=== PATIENT | male | born 1930 | race Caucasian/White ===

== ENCOUNTER 2018-03-03 10:21 | Inpatient (IN) | payer OTHER ==
[~2018-03-03] VITALS: Ht 172.7 cm; Wt 63.6 kg
--- NOTE | 2018-03-03 10:59 | ED AMS/SEIZURE/WEAK/DIZZY ---
History of Present Illness General Chief Complaint: General Adult Stated Complaint: WEAKNESS Source: patient, family, old records, EMS Exam Limitations: poor historian Vital Signs & Intake/Output Vital Signs & Intake/Output Vital Signs Date Time Temp Pulse Resp B/P B/P Pulse O2 O2 Flow FiO2 Mean Ox Delivery Rate 03/03 1453 97.4 80 20 94/60 94 Room Air 03/03 1448 Room Air 03/03 1427 97.6 80 18 99/60 96 Room Air 03/03 1222 83 18 122/71 96 Room Air 03/03 1055 95 Room Air 03/03 1030 97.5 88 20 149/74 94 Room Air Allergies Coded Allergies: No Known Allergies (03/03/18) Reconcile Medications Albuterol Sulfate (Ventolin Hfa) 90 MCG HFA.AER.AD 2 PUF INH Q4-6 PRN PRN SHORTNESS OF BREATH (Reported) Allopurinol 300 MG TABLET 1 TAB PO DAILY GOUT (Reported) Ascorbic Acid (Vitamin C) 500 MG TABLET 1 TAB PO DAILY VITAMIN SUPPORT ( Reported) Atorvastatin Calcium 10 MG TABLET 1 TAB PO QPM CHOLESTEROL (Reported) Cholecalciferol (Vitamin D3) (Vitamin D) 1,000 UNIT TABLET 1 TAB PO DAILY VITAMIN SUPPORT (Reported) Cyanocobalamin (Vitamin B-12) 1,000 MCG TABLET 1 TAB PO DAILY VITAMIN SUPPORT (Reported) Ferrous Sulfate 325 MG (65 MG IRON) TABLET 1 TAB PO QPM VITAMIN SUPPORT ( Reported) Fluticasone/Salmeterol (Advair 500-50 Diskus) 500 MCG-50 MCG/DOSE BLST.W.DEV 1 PUF INH BID BREATHING PROBLEMS (Reported) Furosemide 20 MG TABLET 1 TAB PO DAILY WATER RETENTION (Reported) Metoprolol Succinate 50 MG TAB.ER.24H 1 TAB PO QPM HEART (Reported) Multivit-Min/FA/Lycopen/Lutein (Centrum Silver Tablet) 0.4 MG-300 MCG-250 MCG TABLET 1 TAB PO DAILY VITAMIN SUPPORT (Reported) Terazosin HCl 5 MG CAPSULE 1 CAP PO QPM SLEEP (Reported) Umeclidinium [place] (Incruse Ellipta) 62.5 MCG/ACTUATION BLST.W.DEV 1 INH PO DAILY BREATHING PROBLEMS (Reported) Vitamin E (Dl,Tocopheryl Acet) (Vitamin E) 400 UNIT CAPSULE 1 CAP PO DAILY VITAMIN SUPPORT (Reported) Triage Note: 87 YO MALE BIBA FROM HOME. PT ARRIVES A&O X3. PTS HERE WITH PT, PER , PT HAS BEEN SLEEPING FOR THE PAST COUPLE OF DAYS. STATES THEY HAVE AIDES THAT COME A COUPLE TIMES A WEEK AND HAD PYSICAL THERAPY AND OCCUPATIONAL THERAPY BUT "THEY STOPPED COMING BECUASE HE WASNT PARTICIPATING" STATES "I JUST RECIEVED A LETTER TALKING ABOUT HOSPICE" PT DENIES ANY PAIN. PER , "HE DOESNT EAT OR DRINK ALOT" MD AT BEDSIDE ON ARRIVAL. Triage Nurses Notes Reviewed? yes Onset: 5 days RADIOLOGIC TECH Duration: day(s):, constant, continues in ED, getting worse Timing: recent history Injury Environment: home Severity: moderate, severe Modifying Factors: Improves With: rest. Worsens With: movement. HPI: 5 days prior to admission spouse reports patient is had increased fatigue anorexia and sleeping. She reports he has a chronic cough. There's been no fever chills nausea vomiting diarrhea abdominal pain chest pain shortness of breath headache dysuria rash bleeding. Past History Travel History Traveled to [place] past 21 day No Medical History Any Pertinent Medical History? 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 No Review of Systems Review of Systems Constitutional: Reports: see HPI, weakness. EENTM: Reports: no symptoms. Respiratory: Reports: see HPI, cough. Cardiovascular: Reports: no symptoms. GI: Reports: no symptoms. Genitourinary: Reports: no symptoms. Musculoskeletal: Reports: no symptoms. Skin: Reports: no symptoms. Neurological/Psychological: Reports: no symptoms. Hematologic/Endocrine: Reports: no symptoms. Immunologic/Allergic: Reports: no symptoms. All Other Systems: Reviewed and Negative Physical Exam Physical Exam General Appearance: well developed/nourished, alert, awake, anxious, mild distress, thin Head: atraumatic, normal appearance Eyes: Bilateral: normal appearance, PERRL, EOMI. Ears, Nose, Throat: normal pharynx, dry mucous membranes Neck: normal inspection, supple, full range of motion, no midline tenderness Respiratory: chest non-tender, no respiratory distress, quiet respiration, decreased breath sounds, rales Cardiovascular: normal peripheral pulses, irregularly irregular, norml femoral pulses equa Peripheral Pulses: 4+ carotid (R), 4+ carotid (L) Gastrointestinal: normal bowel sounds, soft, non-tender, no organomegaly Back: normal inspection, normal range of motion, no vertebral tenderness Extremities: normal range of motion, no ligament instability Neurologic/Psych: no motor/sensory deficits, awake, alert, oriented x 3, normal mood/affect, 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 Skin: intact, normal color, warm/dry Lymphatic: no anterior cervical yesenia Core Measures ACS in differential dx? No CVA/TIA Diagnosis No Sepsis Present: No Sepsis Focused Exam Completed? No Progress Differential Diagnosis: dehydration, electrolyte imbalance, hypoglycemia, pneumonia, A. fib Plan of Care: Orders Procedure Date/time Status CORTISOL AM 03/04 0600 Active CBC WITHOUT DIFFERENTIAL 03/04 0600 Active BASIC ELECTROLYTES PLUS BUN&CR 03/04 0600 Active Regular Diet 03/03 L Complete Heart Healthy Diet 03/03 D Active Code Status 03/03 1613 Active Weight 03/03 1447 Active Vital Signs 03/03 1447 Active Teach/Educate 03/03 1447 Active Pain Treatment and Response 03/03 1447 Active Nutritional Intake, Monitor 03/03 1447 Active Isolation 03/03 1447 Active Intake & Output 03/03 1447 Active Patient Care Conference 03/03 1447 Active Activity/Ambulation 03/03 1447 Active SWALLOW EVALUATION 03/03 1418 Active TRC EVALUATION (GEN) 03/03 1418 Active PT Evaluate & Treat 03/03 1418 Active Pathway - chart 03/03 1418 Active House Staff 03/03 1418 Active Patient Data 03/03 1418 Active Code Status 03/03 1418 Complete Patient Data 03/03 1308 Active OXYGEN SETUP (GEN) 03/03 1222 Active Saline Lock 03/03 1222 Active Admit to inpatient 03/03 1222 Active Vital Signs 03/03 1222 Active Activity/Ambulation 03/03 1222 Active Code Status 03/03 1222 Complete BLOOD CULTURE 03/03 1210 Active ARTERIAL BLOOD GAS (GEN) 03/03 1039 Complete URINALYSIS 03/03 1039 Complete THYROID STIMULATING HORMONE 03/03 1039 Complete TROPONIN LEVEL 03/03 1039 Complete MAGNESIUM 03/03 1039 Complete CORTISOL AM 03/03 1039 Complete COMPREHENSIVE METABOLIC PANEL 03/03 1039 Complete CBC WITHOUT DIFFERENTIAL 03/03 1039 Complete B-TYPE NATRIURETIC PEP (BNP) 03/03 1039 Complete Intake & Output 03/03 1037 Active EKG 03/03 1029 Active Lab Add-on Test 03/03 UNK Active VTE Mechanical Prophylaxis 03/03 UNK Active Vital Signs 03/03 UNK Complete Telemetry/Diet Counselor 03/03 UNK Active Intake & Output 03/03 UNK Complete Hemoccult 03/03 UNK Active Current Medications Sig/Jamilah Start time Last Medication Dose Stop Time Status Admin Polyethylene Glycol 17 GM AT BEDTIME 03/03 2200 AC (Miralax) Acetaminophen 650 MG Q6P PRN 03/03 1415 AC (Tylenol) Sodium Chloride 1,000 ML ONCE ONE 03/03 1415 AC 03/03 (Normal Saline 0.9%) 03/04 1014 1524 Laboratory Tests 03/03/18 1220: Urine Color YEL, Urine Clarity HAZY H, Urine pH 6.0, Ur Specific [place] 1.015, Urine Protein NEG, Urine Ketones TRACE H, Urine Nitrite NEG, Urine Bilirubin NEG, Urine Urobilinogen 0.2, Ur Leukocyte Esterase NEG, Ur Microscopic SEDIMENT EXAMINED, Urine RBC >75 H, Urine WBC RARE, Ur Epithelial Cells FEW, Hyaline Casts 1-3 H, Urine Hemoglobin MOD H, Urine Glucose NEG 03/03/18 1120: pH 7.45, pCO2 39, pO2 71 L, HCO3 26, ABG O2 Sat (Measured) 93.0 L, Carboxyhemoglobin 0.7 L, O2 Concentration % RA, Phlebotomy Draw Site LEFT RADIAL 03/03/18 1040: Magnesium Cancelled 03/03/18 1039: Anion Gap 10, Estimated GFR 48 L, BUN/Creatinine Ratio 28.6 H, Glucose 86, Calcium 9.2, Magnesium 2.3, Total Bilirubin 1.5 H, AST 16 L, ALT 25, Alkaline Phosphatase 102, Troponin I 0.03, Shl-S-Xpxhpwvxctd Pept 3670 H, Total Protein 6.6, Albumin 3.2 L, Globulin 3.4, Albumin/Globulin Ratio 0.9 L, TSH 4.170, Cortisol AM Sample 20.7 03/03/18 1038: CBC w Diff NO MAN DIFF REQ, RBC 3.78 L, MCV 97.0 H, MCH 32.1 H, MCHC 33.0, RDW 17.0 H, MPV 9.7, Gran % 65.7, Lymphocytes % 25.7, Monocytes % 8.0, Eosinophils % 0.1, Basophils % 0.5, Absolute Granulocytes 3.8, Absolute Lymphocytes 1.5, Absolute Monocytes 0.5, Absolute Eosinophils 0, Absolute Basophils 0 Microbiology 03/03 1230 BLOOD: Blood Culture - RECD 03/03 1220 BLOOD: Blood Culture - RECD Diagnostic Imaging: Viewed by Me: Radiology Read. Discussed w/RAD: Radiology Read. CXR Impression: Mild interstitial edema. Small right pleural effusion with associated right basilar infiltrate or atelectasis. Initial ED EKG: AFIB, no ST T wave changes Rhythm Strip: atrial fibrillation Departure Departure Time of Disposition: 1219 Disposition: STILL A PATIENT Condition: Stable Clinical Impression Primary Impression: New onset atrial fibrillation Secondary Impressions: Acute renal insufficiency, CHF (congestive heart failure) , Hematuria, Pleural effusion, Pneumonia Referrals: Jose MURGUIA,Cholo Bonilla (PCP/Family) Departure Forms: Customer Survey General Discharge Information Admission Note Spoke With: Harleen MURGUIA,Bennett Documentation of Exam: Documentation of any treatments & extenuating circumstances including Concerns Regarding Discharge (functional status, medication knowledge or non-compliance, living conditions, etc.) that warrant an admission rather than observation: IV antibiotics follow cultures serial lab exam medication adjustment physical therapy continuing care discharge planning
[2018-03-03 11:00] LABS: ABSOLUTE BASOPHIL COUNT 0 /CUMM (0.0-0.2); ABSOLUTE EOSINOPHIL COUNT 0 /CUMM (0.0-0.7); ABSOLUTE GRANULOCYTE CT 3.8 /CUMM (1.4-6.5); ABSOLUTE LYMPH COUNT 1.5 /CUMM (1.2-3.4); ABSOLUTE MONOCYTE COUNT 0.5 /CUMM (0.10-0.60); BASOPHIL % 0.5 % (0.0-2.0); EOSINOPHIL % 0.1 % (0-5); GRANULOCYTE % 65.7 % (42.2-75.2); HEMATOCRIT 36.7 % (42-52); MEAN CORPUSCULAR HGB 32.1 PG (27.0-31.0); MEAN PLATELET VOLUME 9.7 FL (7.4-10.4); PLATELET COUNT 118 /CUMM (130-400); RED BLOOD CELL CT 3.78 /CUMM (4.70-6.10); WHITE BLOOD CELL COUNT 5.7 /CUMM (4.8-10.8)
[2018-03-03] MEDS ORDERED: FUROSEMIDE20 M1 PO (11:03)
[2018-03-03] MEDS ORDERED: ALLOPURINOL300 M1 PO (11:03)
[2018-03-03] MEDS ORDERED: CENTRUM SILVER1 EAC3 PO (11:04)
[2018-03-03] MEDS ORDERED: VITAMIN E400 UNI1 PO (11:04)
[2018-03-03] MEDS ORDERED: VITAMIN C500 M8 PO (11:04)
[2018-03-03] MEDS ORDERED: VITAMIN B-121000 MC3 PO (11:05)
[2018-03-03] MEDS ORDERED: VITAMIN D1000 UNIT PO (11:05)
[2018-03-03] MEDS ORDERED: ATORVASTATIN CA10 M1 PO (11:05)
[2018-03-03] MEDS ORDERED: METOPROLOL SUCC50 M2 PO (11:05)
[2018-03-03] MEDS ORDERED: ADVAIR 500-501 EACH INH (11:06)
[2018-03-03] MEDS ORDERED: FERROUS SULFAT325 M3 PO (11:06)
[2018-03-03] MEDS ORDERED: TERAZOSIN HCL5 M1 PO (11:06)
[2018-03-03] MEDS ORDERED: VENTOLIN HFA18 GM INH (11:07)
[2018-03-03] MEDS ORDERED: INCRUSE ELLI62.5 MCG PO (11:07)
--- NOTE | 2018-03-03 11:57 | RADIOLOGY REPORT ---
EXAMINATION: XR PORTABLE CHEST CLINICAL INFORMATION: Pneumonia. Weakness. COMPARISON: None TECHNIQUE: Portable frontal view of the chest was obtained. FINDINGS: Mild cardiomegaly. Small right pleural effusion with associated right basilar infiltrate or atelectasis. Mild prominence of the pulmonary markings bilateral lungs may represent mild interstitial edema. Subsegmental atelectasis right midlung. Bony thorax is intact. IMPRESSION: Mild interstitial edema. Small right pleural effusion with associated right basilar infiltrate or atelectasis.
--- NOTE | 2018-03-03 13:17 | History & Physical ---
[place] 03/03/18 1316: General Information and HPI MD Statement: I have seen and personally examined ARBEN MAYO and documented this H&P. The patient is a 87 year old M who presented with a patient stated chief complaint of generalized weakness, decreased appetite for last 3 weeks and cough with sputum for last 1 week []. 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 Patient's was on the bedside to help him to answer the questions. His reported that he was in his usual state of health 3 weeks back when she started to notice that his more lethargic and having decreased appetite. She reported that patient is getting his physiotherapy and occupational therapy at home but last 3 weeks he is not interested to do it. The patient's therapist noticed that patient has difficulty getting out of the bed and he is more lethargic. According to he is sleeping all the time and not even taking his medication except the steroid inhaler he is using all the time. She also reported that patient having cough this year requiring sputum for 1 week. According to her this cough is different from his baseline cough that he has always due to his COPD. Denied any chest pain, shortness of breath at rest, palpitation, nausea, vomiting, diarrhea, constipation, lightheadedness, abdominal pain, trauma, headache, chills, fever, sick contact and dysuria. Patient is seeing his urologist after every 6 months for his bladder tumor. Last time he saw his urologist several months back when he did cystoscopy and he told the patient to come and see him in 6 months. Patient is also seeing his primary care physician after every 3 months. Patient has a history of anemia for which she was getting iron infusions at infusion center and now he is taking iron pills. Patient also seeing his marketing representative Dr. Lawson at [facility]. Last time patient was admitted in hospital at [facility] in 2016 the COPD and CHF exacerbation and also had hematuria. ED course: Vitals: Temperature 97.5, pulse 88, respiratory rate 20, blood pressure 149/74, oxygen saturation 94 room air Labs: WBC count 5.7, hemoglobin 12.1, hematocrit 36.7, platelet count 118, sodium 145, potassium 4.1, BUN 40, creatinine 1.4, BUNs/creatinine ratio 28.6, glucose 86, calcium 9.2, magnesium 2.3, total bilirubin 1.5, AST 16, hematocrit 25, alkaline phosphatase 102, troponin 0.03, proBNP 3670, albumin 3.2, globulin 3.4, albumin/globulin ratio 0.9 Blood cultures were obtained in ED. patient was given 1 dose of azithromycin and ceftriaxone. Allergies/Medications Allergies: Coded Allergies: No Known Allergies (03/03/18) Home Med list Albuterol Sulfate (Ventolin Hfa) 90 MCG HFA.AER.AD 2 PUF INH Q4-6 PRN PRN SHORTNESS OF BREATH (Reported) Allopurinol 300 MG TABLET 1 TAB PO DAILY GOUT (Reported) Ascorbic Acid (Vitamin C) 500 MG TABLET 1 TAB PO DAILY VITAMIN SUPPORT ( Reported) Atorvastatin Calcium 10 MG TABLET 1 TAB PO QPM CHOLESTEROL (Reported) Cholecalciferol (Vitamin D3) (Vitamin D) 1,000 UNIT TABLET 1 TAB PO DAILY VITAMIN SUPPORT (Reported) Cyanocobalamin (Vitamin B-12) 1,000 MCG TABLET 1 TAB PO DAILY VITAMIN SUPPORT (Reported) Ferrous Sulfate 325 MG (65 MG IRON) TABLET 1 TAB PO QPM VITAMIN SUPPORT ( Reported) Fluticasone/Salmeterol (Advair 500-50 Diskus) 500 MCG-50 MCG/DOSE BLST.W.DEV 1 PUF INH BID BREATHING PROBLEMS (Reported) Furosemide 20 MG TABLET 1 TAB PO DAILY WATER RETENTION (Reported) Metoprolol Succinate 50 MG TAB.ER.24H 1 TAB PO QPM HEART (Reported) Multivit-Min/FA/Lycopen/Lutein (Centrum Silver Tablet) 0.4 MG-300 MCG-250 MCG TABLET 1 TAB PO DAILY VITAMIN SUPPORT (Reported) Terazosin HCl 5 MG CAPSULE 1 CAP PO QPM SLEEP (Reported) Umeclidinium [place] (Incruse Ellipta) 62.5 MCG/ACTUATION BLST.W.DEV 1 INH PO DAILY BREATHING PROBLEMS (Reported) Vitamin E (Dl,Tocopheryl Acet) (Vitamin E) 400 UNIT CAPSULE 1 CAP PO DAILY VITAMIN SUPPORT (Reported) Past History Travel History Traveled to [place] past 21 day No Medical History Neurological: NONE EENT: NONE Cardiovascular: CHF, hypertension, hyperlipidemia Respiratory: COPD Gastrointestinal: NONE Hepatic: NONE Renal: NONE Musculoskeletal: gout Psychiatric: NONE Endocrine: NONE Blood Disorders: NONE Cancer(s): 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 EENTM: Reports: no symptoms. Cardiovascular: Denies: chest pain, orthopena, palpitations. Respiratory: Reports: cough, sputum production. GI: Reports: no symptoms. Genitourinary: Reports: no symptoms. Musculoskeletal: Reports: no symptoms. Skin: Reports: no symptoms. Neurological/Psychological: Reports: no symptoms. Hematologic/Endocrine: Reports: no symptoms. Exam & Diagnostic Data Last 24 Hrs of Vital Signs/I&O Vital Signs Date Time Temp Pulse Resp B/P B/P Pulse O2 O2 Flow FiO2 Mean Ox Delivery Rate 03/03 1222 83 18 122/71 96 Room Air 03/03 1055 95 Room Air 03/03 1030 97.5 88 20 149/74 94 Room Air Intake & Output 03/03 1600 03/03 0800 03/03 0000 Intake Total 0 Output Total 120 Balance -120 Intake, Oral 0 Output, Urine 120 Patient 140 lb Weight Weight Reported by Patient Measurement Method Physical Exam General Appearance Alert, Oriented X3, Cooperative Skin No Rashes Skin Temp/Moisture Exam: Warm/Dry Sepsis Skin Exam (color): Normal for Ethnicity HEENT Atraumatic, PERRLA, EOMI Neck Supple Cardiovascular Normal S1, Normal S2 Lungs B/L decreased breath sounds Abdomen Soft, No Tenderness, Left side inguinal hernia Neurological Normal Speech, Normal Tone, left upper extrimity 4/5 compare to left, lower extrimities 5/5 Extremities No Edema Last 24 Hrs of Labs/Tanner: Laboratory Tests 03/03/18 1220: Urine Color YEL, Urine Clarity HAZY H, Urine pH 6.0, Ur Specific [place] 1.015, Urine Protein NEG, Urine Ketones TRACE H, Urine Nitrite NEG, Urine Bilirubin NEG, Urine Urobilinogen 0.2, Ur Leukocyte Esterase NEG, Ur Microscopic SEDIMENT EXAMINED, Urine RBC >75 H, Urine WBC RARE, Ur Epithelial Cells FEW, Hyaline Casts 1-3 H, Urine Hemoglobin MOD H, Urine Glucose NEG 03/03/18 1120: pH 7.45, pCO2 39, pO2 71 L, HCO3 26, ABG O2 Sat (Measured) 93.0 L, Carboxyhemoglobin 0.7 L, O2 Concentration % RA, Phlebotomy Draw Site LEFT RADIAL 03/03/18 1040: Magnesium Cancelled 03/03/18 1039: Anion Gap 10, Estimated GFR 48 L, BUN/Creatinine Ratio 28.6 H, Glucose 86, Calcium 9.2, Magnesium 2.3, Total Bilirubin 1.5 H, AST 16 L, ALT 25, Alkaline Phosphatase 102, Troponin I 0.03, Lul-L-Shspivchcry Pept 3670 H, Total Protein 6.6, Albumin 3.2 L, Globulin 3.4, Albumin/Globulin Ratio 0.9 L 03/03/18 1038: CBC w Diff NO MAN DIFF REQ, RBC 3.78 L, MCV 97.0 H, MCH 32.1 H, MCHC 33.0, RDW 17.0 H, MPV 9.7, Gran % 65.7, Lymphocytes % 25.7, Monocytes % 8.0, Eosinophils % 0.1, Basophils % 0.5, Absolute Granulocytes 3.8, Absolute Lymphocytes 1.5, Absolute Monocytes 0.5, Absolute Eosinophils 0, Absolute Basophils 0 Microbiology 03/03 1230 BLOOD: Blood Culture - RECD 03/03 1220 BLOOD: Blood Culture - RECD Assessment/Plan Assessment: 87 YO M ex-smoker with PMH of HTN, HLD, CHF (diastolic and systolic), 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 We'll admit the patient on telemetry floor to rule out any ischemic cardiac injury. Generalized weakness: -Community-acquired pneumonia is less likely considering patient's normal WBC count and he is afebrile. Athough patient received one dose of ceftriaxone and azithromycin. -We will follow blood cultures -Probably due to dehydration or continuous use of steroid inhaler -We will encourage patient to take orally -Patient blood pressure is dropping and will give him normal saline bolus but if it's keep dropping we will consider adrenal insufficiency due to steroid inhaler use. We will consider giving him hydrocortisone. -Gentle IV hydration -PT evaluation Acute kidney injury: -Probably due to dehydration due to low intake of oral fluids and use of Lasix. -Gentle IV hydration -Monitor input and output -Avoid nephrotoxic medications New onset A. fib: -Serial EKGs and drops to rule out any ischemic cardiac injury -Cardiac consult in a.m. -Echocardiogram -Heart rate is under control and already on metoprolol. -CHADS-VASC score is 5. We will follow cardiology recommendations for anticoagulation. -Although patient has history of bladder tumor and he has microscopic hematuria. We will monitor for any gross hematuria. Microscopic hematuria: -Probably from bladder tumor -We will monitor for any gross hematuria or clot formation. -We will monitor H&H. History of hypertension and hyperlipidemia: -Continue home medications History of diastolic and systolic heart failure: -Continue home medications -We will get his records from primary care and [facility]. History of COPD: -TRC nebulization as needed -Continue his home medications History of gout: -Continue allopurinol DVT prophylaxis: Mechanical only due to thrombocytopenia CODE STATUS: DNR/DNI As Ranked By This Provider Problem List: 1. Hematuria 2. Acute renal insufficiency 3. New onset atrial fibrillation Core Measures/Misc (08/18) Acute Coronary Syndrome ACS Diagnosis: No Congestive Heart Failure Congestive Heart Failure Diagnosis No Cerebrovascular Accident CVA/TIA Diagnosis: No VTE (View Protocol) VTE Risk Factors Age>40 No Mechanical VTE Prophylaxis d/t N/A MechProphylax Ordered No VTE Pharm Prophylaxis d/t Platelets below ref range Sepsis (View protocol) Sepsis Present: No Guille MURGUIA,[facility] 03/03/18 1776: Resident Review Statement Resident Statement: examined this patient, discussed with internet marketing intern, agreed with internet marketing intern, discussed with family, discussed with nursing Other Findings: Patient is 87 year old gentleman with past medical history significant for HTN, HLD, CHF (diastolic and systolic), 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 Patient was brought in by family because of excessive sleepiness and fatigability for the last 3 weeks. The primary drapery counselor and his reported that patient could not anymore participate with the visiting nurse for PT and OT because of his sleepiness. She also reported history of productive cough yellow to clear phlegm since last week, denied fever or chills. Patient denies shortness of breath however family reported that over the course of 1 month he has been using Advair every 4 hours in state of the pro air. Patient denied any chest pain, palpitation, blurry vision, headaches. Decrease appetite with weight loss of 10 pounds over 1 month. Problem list #Elevated proBNP #Small right pleural effusion #Atelectasis #New onset atrial fibrillation #Hypertension with possible steroid dependence given history of adverse administration every 4 hours Plan Admit to telemetry floor Vitals every shift Ins and outs Patient was initially treated as a community-acquired pneumonia with ceftriaxone and azithromycin however no leukocytosis and no definitive chest x-ray findings for infection. Will hold off antibiotics Watch for fever Repeat CBCs Repeat BMP and replete electrolytes adequately Patient is hypotensive 94/60, will hold off diuretics and metoprolol succinate, patient will be given 500 normal saline bolus on 2 hours and went back of normal saline running at 50 cc/h Avoid volume overload Consider repeat chest x-ray if patient started to have shortness of breath, at present he is saturating well on room air Initiate aspirin Cardiac consultation for new onset A. fib, recommendation for anticoagulation DVT prophylaxis Alps only for low platelet Code DNR/DNI Diet heart healthy Linnea Antoine 03/03/186: Attending MD Review Statement Attending Statement Attending MD Statement: examined this patient, discuss w/resident/PA/LOCKSTITCH SLEEVE MAKER, agreed w/resident/PA/LOCKSTITCH SLEEVE MAKER, discussed with family, reviewed EMR data (avail), discussed with nursing, discussed with case mgmt Attending Assessment/Plan: Agree with the above assessment and plan. Hypotension- likley secondary to dehydration and diuretics ., will hydrate and if bp does not improve will consider adrenal insufficiency. Cortisol level is ok thought not exactly am level. YOLANDA with high bun/cr ration, will hydrate and recheck in am. Cough- will check flu swab, will dc abx . got one dose of abx in er for PNA. will f/u clinically, pt has normal wbc and afberile. New onset afib- will f/u on telemetry and will do serial trops. rates controlled. will get cardio consult alistair. Thormbocytopenia- recheck in am . d/w pt and pts family at bedside the care plan.
[2018-03-03 14:53] VITALS: BP 94/60
[2018-03-03 18:23] VITALS: BP 110/60
--- NOTE | 2018-03-03 21:36 | Admission Certification ---
Admission Certification Certification Statement - As attending physician, I certify that at the time of - admission, based on clinical presentation, severity of - symptoms, need for further diagnostic testing and - therapeutic interventions, and risk of adverse outcomes - without in-hospital treatment, in my clinical assessment, - this patient requires an acute hospital stay for a minimum - of two nights or longer. I have also considered psychsocial - factors such as support system, advanced age, financial - issues, cognitive issues, and failed out-patient treatments, - past re-admission history, safety of patient, and lack of - compliance as applicable. Specific rationale supporting this admission is: Hypotension. new onset afib
[2018-03-03 22:16] VITALS: BP 124/68
--- NOTE | 2018-03-03 22:41 | Cons- Cardiology ---
General Information and HPI Consulting Request Date of Consult: 03/03/18 Requested By: Rigoberto Clark MD History of Present Illness: Mr. Perez is an 87 year old male with history of hypertension, dyslipidemia, CHF and CVA. The patient was brought to the ER for evaluation of lethargy and anorexia. According to his he has not arisen from bed for two days except to urinate a couple times. On Saturday the patient also had leg swelling although it appears to be mostly resolved at this time. The patient was also short of breath a couple days ago but now is comfortable with his breathing. He otherwise denies chest pain, lightheadedness or palpitations. In the ER the patient was found to be in atrial fibrillation although the patient has no awareness of this dysrhythmia. The patient also has a productive cough. Mr. Perez also has bladder cancer and anemia. Allergies/Medications Allergies: Coded Allergies: No Known Allergies (03/03/18) Home Med List: Albuterol Sulfate (Ventolin Hfa) 90 MCG HFA.AER.AD 2 PUF INH Q4-6 PRN PRN SHORTNESS OF BREATH (Reported) Allopurinol 300 MG TABLET 1 TAB PO DAILY GOUT (Reported) Ascorbic Acid (Vitamin C) 500 MG TABLET 1 TAB PO DAILY VITAMIN SUPPORT ( Reported) Atorvastatin Calcium 10 MG TABLET 1 TAB PO QPM CHOLESTEROL (Reported) Cholecalciferol (Vitamin D3) (Vitamin D) 1,000 UNIT TABLET 1 TAB PO DAILY VITAMIN SUPPORT (Reported) Cyanocobalamin (Vitamin B-12) 1,000 MCG TABLET 1 TAB PO DAILY VITAMIN SUPPORT (Reported) Ferrous Sulfate 325 MG (65 MG IRON) TABLET 1 TAB PO QPM VITAMIN SUPPORT ( Reported) Fluticasone/Salmeterol (Advair 500-50 Diskus) 500 MCG-50 MCG/DOSE BLST.W.DEV 1 PUF INH BID BREATHING PROBLEMS (Reported) Furosemide 20 MG TABLET 1 TAB PO DAILY WATER RETENTION (Reported) Metoprolol Succinate 50 MG TAB.ER.24H 1 TAB PO QPM HEART (Reported) Multivit-Min/FA/Lycopen/Lutein (Centrum Silver Tablet) 0.4 MG-300 MCG-250 MCG TABLET 1 TAB PO DAILY VITAMIN SUPPORT (Reported) Terazosin HCl 5 MG CAPSULE 1 CAP PO QPM SLEEP (Reported) Umeclidinium Lititz (Incruse Ellipta) 62.5 MCG/ACTUATION BLST.W.DEV 1 INH PO DAILY BREATHING PROBLEMS (Reported) Vitamin E (Dl,Tocopheryl Acet) (Vitamin E) 400 UNIT CAPSULE 1 CAP PO DAILY VITAMIN SUPPORT (Reported) Review of Systems Review of Systems: Bladder cancer and anemia. 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 Home Smoking Status: Former Smoker Exam & Diagnostic Data Vital Signs and I&O Vital Signs Date Time Temp Pulse Resp B/P B/P Pulse O2 O2 Flow FiO2 Mean Ox Delivery Rate 03/036 97.7 83 18 124/68 94 03/03 1823 82 110/60 03/03 1453 97.4 80 20 94/60 94 Room Air 03/03 1448 Room Air 03/03 1427 97.6 80 18 99/60 96 Room Air 03/03 1222 83 18 122/71 96 Room Air 03/03 1055 95 Room Air 03/03 1030 97.5 88 20 149/74 94 Room Air Intake & Output 03/03 1600 03/03 0800 03/03 0000 03/02 1600 03/02 0800 03/02 0000 Intake Total 0 Output Total 120 Balance -120 Intake, Oral 0 Output, Urine 120 Patient 137 lb Weight Weight Bed scale Measurement Method Physical Exam: General: WD/WN male in NAD; alert and oriented x 3 HEENT: NC/AT, pERRL, EOMI Neck: no JVD, no carotid bruit Heart: irregularly irregular Lungs: clear bilaterally Abdomen: soft, NT, +ve bowel sounds Extremities: 1+ leg edema Assessment/Plan Assessment/Plan * This patient is lethargic which may be related to atrial fibrillation although a viral syndrome or bronchitic infection cannot be excluded. His heart rate is not dramatically increased which is indicative of underlying conduction system disease although he is on Metoprolol. I would continue this medication at its current dose for now. Check a TSH and free T4 level. Obtain an echocardiogram. Begin Eliquis 5mg BID. The patient does not appears to have decompensated CHF or myocardial ischemia at this point in time. Consult Acknowledgment - Thank you for your consult request.
[2018-03-04 06:53] VITALS: BP 118/60
--- NOTE | 2018-03-04 07:04 | PN- Housestaff ---
[facility]: Subjective Follow-up For: New onset A. fib Acute kidney injury Generalized weakness probably due to dehydration Tele-Events Since Last Visit: Patient remained in A. fib with heart rate 7379 Subjective: No overnight events. Patient remained afebrile overnight. Seen and examined this morning. He denied any chest pain, short of breath, nausea, vomiting, chills, fever, abdominal pain dysuria. Patient reported having generalized weakness but he is feeling much improved compared to he came in. We will encourage him to eat and drink more. We'll get PT consult. Review of Systems Constitutional: Reports: weakness. EENTM: Reports: no symptoms. Cardiovascular: Reports: no symptoms. Respiratory: Reports: no symptoms. Gastrointestinal: Reports: no symptoms. Genitourinary: Reports: no symptoms. Musculoskeletal: Reports: no symptoms. Skin: Reports: no symptoms. Neurological/Psychological: Reports: no symptoms. Objective Last 24 Hrs of Vital Signs/I&O Vital Signs Date Time Temp Pulse Resp B/P B/P Pulse O2 O2 Flow FiO2 Mean Ox Delivery Rate 03/04 0846 Room Air 03/04 0800 Room Air 03/04 0653 98.0 69 18 118/60 93 Room Air 04/ 2216 97.7 83 18 124/68 94 04/ 1823 82 110/60 04/02 1453 97.4 80 20 94/60 94 Room Air 04/ 1448 Room Air 04/ 1427 97.6 80 18 99/60 96 Room Air 04/ 1222 83 18 122/71 96 Room Air Intake & Output 03/04 1600 / 0800 04/ 0000 Intake Total 320 1150 Output Total 400 200 Balance -80 950 Intake, IV 200 610 Intake, Oral 120 540 Output, Urine 400 200 Patient 139 lb Weight Physical Exam General Appearance: Alert, Oriented X3, Cooperative, No Acute Distress Skin: No Rashes Skin Temp/Moisture Exam: Warm/Dry Sepsis Skin Exam (color): Normal for Ethnicity HEENT: Atraumatic, PERRLA, EOMI Neck: Supple Cardiovascular: Normal S1, Normal S2 Lungs: Decreased breath sounds b/l Abdomen: Soft, No Tenderness Neurological: Normal Speech, Normal Tone Extremities: No Edema Assessment/Plan Assessment: 87 YO M ex-smoker with PMH of HTN, HLD, CHF (diastolic and systolic), 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 We'll patient on telemetry floor for following problems. Generalized weakness: -Community-acquired pneumonia is less likely considering patient's normal WBC count and he is afebrile. Athough patient received one dose of ceftriaxone and azithromycin. -Blood and sputum cultures are pending. -Probably due to dehydration or continuous use of steroid inhaler -We will encourage patient to take orally. -Gentle IV hydration -PT evaluation Acute kidney injury: -Probably due to dehydration due to low intake of oral fluids and use of Lasix. -Gentle IV hydration -Monitor input and output -Avoid nephrotoxic medications -Keep holding Lasix New onset A. fib: -EKGs and troponins are negative. -Echocardiogram -Heart rate is under control and already on metoprolol. -CHADS-VASC score is 5. We will follow cardiology recommendations for anticoagulation. -Eliquis 5mg bid Microscopic hematuria: -Probably from bladder tumor -We will monitor for any gross hematuria or clot formation. -We will monitor H&H. History of hypertension and hyperlipidemia: -Continue home medications History of diastolic and systolic heart failure: -Continue home medications -We will get his records from primary care and [facility]. -Hold the Lasix considering his dehydration History of COPD: -TRC nebulization as needed -Continue his home medications History of gout: -Continue allopurinol DVT prophylaxis: Mechanical only due to thrombocytopenia CODE STATUS: DNR/DNI Problem List: 1. Acute renal insufficiency 2. New onset atrial fibrillation 3. 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 Patient has no complaints today and feels well. He is eager to start walking around again, as he had not been able to participate with home PT for several days prior due to weakness. His appetite is good and he feels strong. He remains in atrial fibrillation, and is rate controlled in 70's on Metoprolol. There is no evidence of pneumonia clinicallly or by imaging. 1. New onset atrial fibrillation 2. Hypotension (resolved) 3. Viral syndrome Plan - Continue on telemetry - Continue Metoprolol and Eliquis - Discontinue ASA - Follow cardiology recommendations - PT eval - Continue home medications - Nutrition consult - Eliquis for DVT PPx - No labs tomorrow
[2018-03-04 08:24] LABS: ABSOLUTE BASOPHIL COUNT 0 /CUMM (0.0-0.2); ABSOLUTE EOSINOPHIL COUNT 0 /CUMM (0.0-0.7); ABSOLUTE GRANULOCYTE CT 4.2 /CUMM (1.4-6.5); ABSOLUTE LYMPH COUNT 0.9 /CUMM (1.2-3.4); ABSOLUTE MONOCYTE COUNT 0.4 /CUMM (0.10-0.60); BASOPHIL % 0.5 % (0.0-2.0); EOSINOPHIL % 0 % (0-5); GRANULOCYTE % 75.3 % (42.2-75.2); HEMATOCRIT 32.3 % (42-52); MEAN CORPUSCULAR HGB 32.4 PG (27.0-31.0); MEAN CORPUSCULAR HGB CONC 32.7 G/DL (33.0-37.0); MEAN PLATELET VOLUME 10.8 FL (7.4-10.4); PLATELET COUNT 101 /CUMM (130-400); RBC DISTRIBUTION WIDTH 17.1 % (11.5-14.5); RED BLOOD CELL CT 3.26 /CUMM (4.70-6.10); WHITE BLOOD CELL COUNT 5.6 /CUMM (4.8-10.8)
[2018-03-04 14:15] VITALS: BP 128/64
--- NOTE | 2018-03-04 17:16 | PN- Cardiology ---
Subjective Subjective: * This patient feels much improved. He denies chest discomfort, shortness of breath, lightheadedness or palpitations. * Atrial fibrillation with controlled heart rate. * creatinine 1.3 Objective Vital Signs and I&Os Vital Signs Date Time Temp Pulse Resp B/P B/P Pulse O2 O2 Flow FiO2 Mean Ox Delivery Rate 03/04 1415 97.6 76 18 128/64 94 Room Air 03/04 0846 Room Air 03/04 0800 Room Air 03/04 0653 98.0 69 18 118/60 93 Room Air 03/03 2216 97.7 83 18 124/68 94 03/03 1823 82 110/60 Intake & Output 03/04 1600 03/04 0800 03/04 0000 03/03 1600 03/03 0800 03/03 0000 Intake Total 251 714 4513 0 Output Total 400 200 120 Balance 840 -80 950 -120 Intake, IV 200 610 Intake, Oral 840 120 540 0 Number 1 Bowel Movements Output, Urine 400 200 120 Patient 139 lb 137 lb Weight Weight Bed scale Measurement Method Physical Exam: General: WD/WN male in NAD; alert and oriented x 3 Neck: no JVD, no carotid bruit Heart: irregularly irregular Lungs: clear bilaterally Extremities: 1+ leg edema Assessment/Plan Assessment/Plan * This patient had some lethargy which appears to have resolved. He is now asymptomatic except for a minor cough. I suspect that he has a viral bronchitic infection which is resolving. In the setting of his lethargy from his viral syndrome he was brought to the ER where atrial fibrillation has been discovered. It is difficult to know how long he has been in this rhythm. His heart rate is not dramatically increased which is indicative of underlying conduction system disease although he is on Metoprolol which should be continued at its current dose. Obtain an echocardiogram. Continue Eliquis 5mg BID. The patient does not appears to have decompensated CHF or myocardial ischemia at this point in time. Continue telemetry? Yes
[2018-03-04 23:34] VITALS: BP 140/80
--- NOTE | 2018-03-05 06:24 | Event Note ---
Event Note Event Note: Called for hematuria, history of bladder cancer, patient is on eliquis for atrial fibrillation. alejandra ordered but not able to placed successfully by the nursing staff. Monitored for urinary outflow obstruction, straight cathed this morning with 100cc bloody "merlot" colored urine. Urology consult will need to be placed in the morning for alejandra placement bladder irrigation vs 3 way alejandra and CBI and discussion of anticoagulation risks vs benefits
[2018-03-05 06:39] VITALS: BP 102/70
--- NOTE | 2018-03-05 07:39 | PN- Housestaff ---
[facility] 0738: Subjective Follow-up For: New onset Marcela rodriguez Acute kidney injury(improving) Generalized weakness probably due to dehydration (improving) Gross hematuria Tele-Events Since Last Visit: Marcela rodriguez heart rate between 5784 Subjective: Patient had gross hematuria yesterday without showed obstruction. Patient remained afebrile overnight. Patient denied any chest pain, short of breath, nausea, vomiting, abdominal pain and dysuria. Patient reported that his weakness has improved. Patient doesn't want any surgical procedure. Review of Systems Constitutional: Reports: no symptoms. EENTM: Reports: no symptoms. Cardiovascular: Reports: no symptoms. Respiratory: Reports: no symptoms. Gastrointestinal: Reports: no symptoms. Genitourinary: Reports: hematuria. Musculoskeletal: Reports: no symptoms. Neurological/Psychological: Reports: no symptoms. Objective Last 24 Hrs of Vital Signs/I&O Vital Signs Date Time Temp Pulse Resp B/P B/P Pulse O2 O2 Flow FiO2 Mean Ox Delivery Rate 03/05 0639 97.6 75 20 102/70 94 03/04 2334 97.8 84 20 140/80 94 03/04 2023 78 136/82 03/04 1415 97.6 76 18 128/64 94 Room Air 03/04 0846 Room Air Intake & Output 03/05 1600 03/05 0800 03/05 0000 Intake Total 120 420 Output Total 400 350 Balance -280 70 Intake, Oral 120 420 Output, Urine 400 350 Patient 138 lb Weight Weight Bed scale Measurement Method Physical Exam General Appearance: Alert, Oriented X3, Cooperative Skin: No Rashes Skin Temp/Moisture Exam: Warm/Dry Sepsis Skin Exam (color): Normal for Ethnicity HEENT: Atraumatic, PERRLA, EOMI Neck: Supple Cardiovascular: Normal S1, Normal S2 Lungs: Clear to Auscultation Abdomen: Soft, No Tenderness Neurological: Normal Speech, Strength at 5/5 X4 Ext, Normal Tone Extremities: No Edema Assessment/Plan Assessment: 87 YO M ex-smoker with PMH of HTN, HLD, CHF (diastolic and systolic), 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 We are following patient on telemetry floor for following problems. Generalized weakness:(improving) -Possibly due to viral syndrom. -Blood and sputum cultures negative we will follow final results. -Probably due to dehydration or continuous use of steroid inhaler -We will encourage patient to take orally. -Gentle IV hydration -PT evaluation Acute kidney injury:(improving) -Probably due to dehydration due to low intake of oral fluids and use of Lasix. -Gentle IV hydration -Monitor input and output -Avoid nephrotoxic medications -Keep holding Lasix New onset A. fib: -EKGs and troponins are negative. -Echocardiogram -Heart rate is under control and already on metoprolol. -CHADS-VASC score is 5. We will follow cardiology recommendations for anticoagulation. -Eliquis 5mg bid Gross hematuria: -Probably from bladder tumor -We will monitor for any gross hematuria or clot formation. -We will monitor H&H. -Possibly microscopic hematuria Precipitated with anticoagulation. -Urology recommended urine cytology and CTscan abdomen with and with out iv contrast. Possibly cystoscopy tomorrow. -Keep him NPO midnight and we will hold tomorrow morning eliquis. History of hypertension and hyperlipidemia: -Continue home medications History of diastolic and systolic heart failure: -Continue home medications -We will get his records from primary care and [facility]. -Hold the Lasix considering his dehydration History of COPD: -TRC nebulization as needed -Continue his home medications History of gout: -Continue allopurinol DVT prophylaxis: Mechanical only due to thrombocytopenia CODE STATUS: DNR/DNI Problem List: 1. Hematuria 2. New onset atrial fibrillation 3. 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 Patient has no complaints today and feels well. He is rate controlled and in atrial fibrillation. He had gross hematuria today. We discussed our recommendation that he undergo CT abdomen/pelvis and cystoscopy to evaluate hematuria, but the patient refused, and said he wants to talk it over with his , as he and his agreed with each other not to have any further invasive procedures. The risks and benefits were explained. Further dialogue will continue. 1. New onset atrial fibrillation 2. Hypotension (resolved) 3. Viral syndrome 4. YOLANDA 5. Gross hematuria 6. Bladder mass Plan - Continue on telemetry - Continue Metoprolol and Eliquis - Follow cardiology and urology recommendations - PT eval - Continue home medications - Nutrition consult - Eliquis for DVT PPx - Will continue goals of care discussion. If no further intervention is desired , can consider discharging tomorrow if able to ambulate. If patient agrees, will undergo cystoscopy tomorrow. will undergo cystoscopy tomorrow.
--- NOTE | 2018-03-05 07:45 | Cons- Urology ---
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 Patient's was on the bedside to help him to answer the questions. His reported that he was in his usual state of health 3 weeks back when she started to notice that his more lethargic and having decreased appetite. She reported that patient is getting his physiotherapy and occupational therapy at home but last 3 weeks he is not interested to do it. The patient's therapist noticed that patient has difficulty getting out of the bed and he is more lethargic. According to he is sleeping all the time and not even taking his medication except the steroid inhaler he is using all the time. She also reported that patient having cough this year requiring sputum for 1 week. According to her this cough is different from his baseline cough that he has always due to his COPD. Denied any chest pain, shortness of breath at rest, palpitation, nausea, vomiting, diarrhea, constipation, lightheadedness, abdominal pain, trauma, headache, chills, fever, sick contact and dysuria. Patient is seeing his urologist after every 6 months for his bladder tumor. Last time he saw his urologist several months back when he did cystoscopy and he told the patient to come and see him in 6 months. Patient is also seeing his primary care physician after every 3 months. Patient has a history of anemia for which she was getting iron infusions at infusion center and now he is taking iron pills. Patient also seeing his gerontological nurse practitioner Dr. Lawson at [facility]. Last time patient was admitted in hospital at [facility] in 2016 the COPD and CHF exacerbation and also had hematuria. Pts wishes to have FAMILY meeting with medical team to discuss risks or TURBT. I told pt he is high risk for /bad prognosis with or without turbt. Allergies/Medications Allergies: Coded Allergies: No Known Allergies (03/03/18) Home Med List: Albuterol Sulfate (Ventolin Hfa) 90 MCG HFA.AER.AD 2 PUF INH Q4-6 PRN PRN SHORTNESS OF BREATH (Reported) Allopurinol 300 MG TABLET 1 TAB PO DAILY GOUT (Reported) Ascorbic Acid (Vitamin C) 500 MG TABLET 1 TAB PO DAILY VITAMIN SUPPORT ( Reported) Atorvastatin Calcium 10 MG TABLET 1 TAB PO QPM CHOLESTEROL (Reported) Cholecalciferol (Vitamin D3) (Vitamin D) 1,000 UNIT TABLET 1 TAB PO DAILY VITAMIN SUPPORT (Reported) Cyanocobalamin (Vitamin B-12) 1,000 MCG TABLET 1 TAB PO DAILY VITAMIN SUPPORT (Reported) Ferrous Sulfate 325 MG (65 MG IRON) TABLET 1 TAB PO QPM VITAMIN SUPPORT ( Reported) Fluticasone/Salmeterol (Advair 500-50 Diskus) 500 MCG-50 MCG/DOSE BLST.W.DEV 1 PUF INH BID BREATHING PROBLEMS (Reported) Furosemide 20 MG TABLET 1 TAB PO DAILY WATER RETENTION (Reported) Metoprolol Succinate 50 MG TAB.ER.24H 1 TAB PO QPM HEART (Reported) Multivit-Min/FA/Lycopen/Lutein (Centrum Silver Tablet) 0.4 MG-300 MCG-250 MCG TABLET 1 TAB PO DAILY VITAMIN SUPPORT (Reported) Terazosin HCl 5 MG CAPSULE 1 CAP PO QPM SLEEP (Reported) Umeclidinium [place] (Incruse Ellipta) 62.5 MCG/ACTUATION BLST.W.DEV 1 INH PO DAILY BREATHING PROBLEMS (Reported) Vitamin E (Dl,Tocopheryl Acet) (Vitamin E) 400 UNIT CAPSULE 1 CAP PO DAILY VITAMIN SUPPORT (Reported) Current Medications: Current Medications Sig/Jamilah Start time Last Medication Dose Route Stop Time Status Admin Acetaminophen 650 MG Q6P PRN 03/03 1415 AC PO Albuterol Sulfate 2 PUF Q4-6 PRN PRN 03/03 1715 AC INH Allopurinol 300 MG DAILY 03/04 1000 AC 03/04 PO 0855 Apixaban 5 MG BID 03/04 0330 AC 03/04 PO 2022 Aspirin 81 MG DAILY 03/03 1713 DC 03/04 PO 0855 Atorvastatin Calcium 10 MG QPM 03/03 2200 AC 03/04 PO 2021 Budesonide/ 2 PUF BID 03/03 2200 AC 03/04 Formoterol Fumarate INH 2021 Cholecalciferol 1,000 IU DAILY 03/04 1000 AC 03/04 PO 0855 Cyanocobalamin 1,000 MCG DAILY 03/04 1000 AC 03/04 PO 0855 Ferrous Sulfate 325 MG DAILY 03/04 1000 AC 03/04 PO 0855 Metoprolol Succinate 50 MG QPM 03/04 220 AC 03/04 PO 2022 Patient Medication 1 ED ONE ONE 03/04 1445 DC Teaching ED 03/04 1446 Polyethylene Glycol 17 GM AT BEDTIME 03/03 2200 AC 03/04 PO 2021 Potassium Chloride 40 MEQ ONCE ONE 03/04 1545 DC 03/04 PO 03/04 1546 1534 Potassium Chloride 40 MEQ ONCE ONE 03/04 1400 DC PO 03/04 1401 Sodium Chloride 1,000 ML ONCE ONE 03/03 1415 DC 03/03 IV 03/04 1014 1524 Past History Medical History Blood Transfusion Hx: No Neurological: NONE EENT: NONE Cardiovascular: CHF, hypertension, hyperlipidemia Respiratory: COPD Gastrointestinal: NONE Hepatic: NONE Renal: NONE Musculoskeletal: gout Psychiatric: NONE Endocrine: NONE Blood Disorders: NONE Cancer(s): NONE 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 Home Smoking Status: Former Smoker Employment History Retired? yes Review of Systems Review of Systems Constitutional: Denies: no symptoms (pt not reliable historian). EENTM: Denies: no symptoms. Cardiovascular: Denies: no symptoms. Respiratory: Denies: no symptoms. GI: Denies: no symptoms. Genitourinary: Denies: no symptoms. Musculoskeletal: Denies: no symptoms. Skin: Denies: no symptoms. Exam & Diagnostic Data Vital Signs and I&O Vital Signs Date Time Temp Pulse Resp B/P B/P Pulse O2 O2 Flow FiO2 Mean Ox Delivery Rate 03/05 0639 97.6 75 20 102/70 94 03/04 2334 97.8 84 20 140/80 94 03/04 2023 78 136/82 03/04 1415 97.6 76 18 128/64 94 Room Air 03/04 0846 Room Air 03/04 0800 Room Air Intake & Output 03/05 0800 / 0000 /03 1600 03/04 0800 03/04 0000 03/03 1600 Intake Total 120 420 210 641 2119 0 Output Total 400 350 400 200 120 Balance -280 70 840 -80 950 -120 Intake, IV 200 610 Intake, Oral 120 420 840 120 540 0 Number 1 Bowel Movements Output, Urine 400 350 400 200 120 Patient 138 lb 139 lb 137 lb Weight Weight Bed scale Bed scale Measurement Method Physical Exam General Appearance: well developed/nourished, cachetic Head: atraumatic Eyes: Bilateral: normal appearance. Respiratory: normal breath sounds Cardiovascular: irregularly irregular Gastrointestinal: normal bowel sounds Back: no vertebral tenderness Extremities: normal inspection Skin: intact Reproductive: Normal male genitalia Last 24 Hours of Labs: Laboratory Tests 03/05 620 Chemistry Sodium Pending Potassium Pending Chloride Pending Carbon Dioxide Pending Anion Gap Pending BUN Pending Creatinine Pending BUN/Creatinine Ratio Pending Hematology CBC w Diff Pending WBC Pending RBC Pending Hgb Pending Hct Pending MCV Pending MCH Pending MCHC Pending RDW Pending Plt Count Pending MPV Pending Imaging Results: PATIENT: ABREN MAYO PRESENT AGE: 87 PATIENT ACCOUNT NO: [id number] : [birth year] LOCATION: [facility] ORDERING PHYSICIAN: Ronald Sue MD SERVICE DATE: 03/03/18 EXAM TYPE: RAD - XRY-PORTABLE CHEST XRAY EXAMINATION: XR PORTABLE CHEST CLINICAL INFORMATION: Pneumonia. Weakness. COMPARISON: None TECHNIQUE: Portable frontal view of the chest was obtained. FINDINGS: Mild cardiomegaly. Small right pleural effusion with associated right basilar infiltrate or atelectasis. Mild prominence of the pulmonary markings bilateral lungs may represent mild interstitial edema. Subsegmental atelectasis right midlung. Bony thorax is intact. IMPRESSION: Mild interstitial edema. Small right pleural effusion with associated right basilar infiltrate or atelectasis. DICTATED BY: Sol Yo MD DATE/TIME DICTATED:03/03/181151 ALUMINUM MOLDING MACHINE OPERATOR:NINO DATE/TIME TRANSCRIBED:03/03/181151 CONFIDENTIAL, DO NOT COPY WITHOUT APPROPRIATE AUTHORIZATION. <Electronically signed in Other Vendor System> SIGNED BY: Sol Yo MD 03/03/181156 PATIENT: ARBEN MAYO PRESENT AGE: 87 PATIENT ACCOUNT NO: [id number] : [birth year] LOCATION: [facility] ORDERING PHYSICIAN: Trevin Redmond MD SERVICE DATE: 04/04/18- EXAM TYPE: CAT - CT ABD & PELVIS W/ & W/O IV CO EXAMINATION: CT ABDOMEN AND PELVIS WITHOUT AND WITH CONTRAST CLINICAL INFORMATION: Gross hematuria. Bladder tumor. COMPARISON: None TECHNIQUE: Multidetector volumetric imaging was performed through the abdomen and pelvis prior to IV contrast. The abdomen and pelvis were then reexamined after the administration of 95 mL Optiray 320 intravenous contrast. Sagittal and coronal reformatted images were obtained on the technologist's workstation. DLP: 581 mGy-cm FINDINGS: LUNG BASES: Mild centrilobular emphysema in the visualized lung bases. Bilateral pleural effusions (small on the right and trace on the left). Atherosclerotic calcification of coronary arteries and thoracic aorta. Mitral valve annulus is calcified. Mild cardiomegaly. Small, nonspecific, 0.2 cm and 0.4 cm noncalcified nodules within the left lower lobe (images 17 and 33, series 3). Also, 0.5 x 0.9 cm noncalcified nodule is present in the medial left lower lobe (image 18, series 3). LIVER, GALLBLADDER, AND BILIARY TREE: Liver has normal size and contour. 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 Small, 0.4 cm hypodense focus within hepatic segment V is likely a cyst. No suspicious appearing liver lesion. Cholelithiasis without gallbladder wall edema or pericholecystic fluid. No intrahepatic or extrahepatic bile duct dilatation. PANCREAS: Unremarkable. SPLEEN: Unremarkable. ADRENAL GLANDS: Unremarkable. KIDNEYS AND URETERS: Multiple bilateral renal cortical cysts, largest of the left lower pole measuring up to 8.3 cm maximum dimension. No solid renal mass, nephrolithiasis or hydronephrosis. On the excretory phase postcontrast images, there is suboptimal distention of the intrarenal collecting systems. The lack of opacification of the [id number] right ureter and of segments of the left ureter likely reflects peristalsis at the time of imaging. There are no urothelial lesions identified along the upper urinary tracts. BLADDER: There is an irregular 4.5 x 1.8 x 3.8 cm mucosal mass of the posterior right bladder wall. No bladder calculi. GASTROINTESTINAL TRACT AND ABDOMINAL WALL: Loops of bowel are normal in caliber. No evidence of acute inflammation or obstruction along the gastrointestinal tract. There is a fat-containing indirect right inguinal hernia. In addition, there is a large left inguinal hernia containing fat, small amount of fluid and sigmoid colon. Sigmoid colon diverticulosis without diverticulitis. LYMPH NODES: No pathologic sized lymph nodes in the abdomen or pelvis. VASCULAR: There is extensive atherosclerotic calcification of the aorta and branch vessels, including splenic artery. 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 Left common iliac artery measures up to 1.6 similar transverse and right common iliac 1.3 cm transverse. PELVIC VISCERA: Large prostate gland is 5.4 x 3.8 x 5.2 cm. 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 Probable subacute compression fracture of L2 vertebral body which exhibits approximately 50% central height loss. Schmorl's node of the L2 inferior endplate. Multilevel facet osteoarthritis and degenerative disc disease of the lumbar spine. Mild osteoarthritis of the hips. No aggressive osseous lesions. IMPRESSION: 1. Irregular mucosal mass of the posterior right bladder wall, consistent with urothelial carcinoma, measures approximately 4.5 x 1.8 x 3.8 cm. 2. Multiple benign-appearing bilateral renal cysts, largest on the left measuring up to 8.3 cm maximum dimension. 3. Small right pleural effusion and trace left pleural effusion. 4. Nonspecific nodules within the visualized left lower lobe (as described above). 5. 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 6. Large left inguinal hernia contains fat, small amount of fluid and sigmoid colon. 7. Skeletal findings include a recent L2 compression fracture with approximately 50% central height reduction. DICTATED BY: John Ramirez MD DATE/TIME DICTATED:03/05/181409 ALUMINUM MOLDING MACHINE OPERATOR:NINO DATE/TIME TRANSCRIBED:03/05/181409 CONFIDENTIAL, DO NOT COPY WITHOUT APPROPRIATE AUTHORIZATION. <Electronically signed in Other Vendor System> SIGNED BY: John Ramirez MD 03/05/18 9892 Assessment/Plan Assessment/Plan PT WITH REPORTED HX BLADDER MASS-DIAGNOSED AT [facility]. PRESENTS WITH NEW ONSET A-FIB AND STARTED ON ELIQUIST: SUBSEQUENTLY DEVELOPED GROSS HEMATURIA- VOIDING WELL AND NOT IN RETENTION.: PLAN IS CYSTOSCOPY AND POSSIBLE TURBT TOMORROW. RECOMMEND SENDING URINE FOR CYTOLOGY TODAY. RECOMMEND CT ABD AND PELVIS WITH/WITHOUT IV CONTRAST. Copies To: Korey Luciano MD Consult Acknowledgment - Thank you for your consult request. Attending MD Review Statement Attending Statement Attending MD Statement: examined this patient, discuss w/resident/PA/COATER Attending Assessment/Plan: PT WITH GROSS HEMATURIA: CYTOLOGY/CT RECOMMENDED: OK TO CONTINUE MARISOL TODAY -PLEASE STOP FOR CYSTOSCOPY/TURBT TOMORROW-AND NPO AT MIDNIGHT.
[2018-03-05 08:16] LABS: ABSOLUTE BASOPHIL COUNT 0 /CUMM (0.0-0.2); ABSOLUTE EOSINOPHIL COUNT 0 /CUMM (0.0-0.7); ABSOLUTE LYMPH COUNT 1.1 /CUMM (1.2-3.4); ABSOLUTE MONOCYTE COUNT 0.4 /CUMM (0.10-0.60); BASOPHIL % 0.8 % (0.0-2.0); EOSINOPHIL % 0 % (0-5); GRANULOCYTE % 72.1 % (42.2-75.2); HEMATOCRIT 34.8 % (42-52); MEAN CORPUSCULAR HGB 32.5 PG (27.0-31.0); MEAN CORPUSCULAR HGB CONC 32.9 G/DL (33.0-37.0); MEAN CORPUSCULAR VOLUME 98.6 FL (80.0-94.0); MEAN PLATELET VOLUME 10.2 FL (7.4-10.4); PLATELET COUNT 108 /CUMM (130-400); RBC DISTRIBUTION WIDTH 16.7 % (11.5-14.5); RED BLOOD CELL CT 3.53 /CUMM (4.70-6.10); WHITE BLOOD CELL COUNT 5.5 /CUMM (4.8-10.8)
[2018-03-05 13:52] VITALS: BP 140/60
--- NOTE | 2018-03-05 14:37 | CT SCAN REPORT ---
EXAMINATION: CT ABDOMEN AND PELVIS WITHOUT AND WITH CONTRAST CLINICAL INFORMATION: Gross hematuria. Bladder tumor. COMPARISON: None TECHNIQUE: Multidetector volumetric imaging was performed through the abdomen and pelvis prior to IV contrast. The abdomen and pelvis were then reexamined after the administration of 95 mL Optiray 320 intravenous contrast. Sagittal and coronal reformatted images were obtained on the technologist's workstation. DLP: 581 mGy-cm FINDINGS: LUNG BASES: Mild centrilobular emphysema in the visualized lung bases. Bilateral pleural effusions (small on the right and trace on the left). Atherosclerotic calcification of coronary arteries and thoracic aorta. Mitral valve annulus is calcified. Mild cardiomegaly. Small, nonspecific, 0.2 cm and 0.4 cm noncalcified nodules within the left lower lobe (images 17 and 33, series 3). Also, 0.5 x 0.9 cm noncalcified nodule is present in the medial left lower lobe (image 18, series 3). LIVER, GALLBLADDER, AND BILIARY TREE: Liver has normal size and contour. 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 Small, 0.4 cm hypodense focus within hepatic segment V is likely a cyst. No suspicious appearing liver lesion. Cholelithiasis without gallbladder wall edema or pericholecystic fluid. No intrahepatic or extrahepatic bile duct dilatation. PANCREAS: Unremarkable. SPLEEN: Unremarkable. ADRENAL GLANDS: Unremarkable. KIDNEYS AND URETERS: Multiple bilateral renal cortical cysts, largest of the left lower pole measuring up to 8.3 cm maximum dimension. No solid renal mass, nephrolithiasis or hydronephrosis. On the excretory phase postcontrast images, there is suboptimal distention of the intrarenal collecting systems. The lack of opacification of the [id number] right ureter and of segments of the left ureter likely reflects peristalsis at the time of imaging. There are no urothelial lesions identified along the upper urinary tracts. BLADDER: There is an irregular 4.5 x 1.8 x 3.8 cm mucosal mass of the posterior right bladder wall. No bladder calculi. GASTROINTESTINAL TRACT AND ABDOMINAL WALL: Loops of bowel are normal in caliber. No evidence of acute inflammation or obstruction along the gastrointestinal tract. There is a fat-containing indirect right inguinal hernia. In addition, there is a large left inguinal hernia containing fat, small amount of fluid and sigmoid colon. Sigmoid colon diverticulosis without diverticulitis. LYMPH NODES: No pathologic sized lymph nodes in the abdomen or pelvis. VASCULAR: There is extensive atherosclerotic calcification of the aorta and branch vessels, including splenic artery. 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 Left common iliac artery measures up to 1.6 similar transverse and right common iliac 1.3 cm transverse. PELVIC VISCERA: Large prostate gland is 5.4 x 3.8 x 5.2 cm. 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 Probable subacute compression fracture of L2 vertebral body which exhibits approximately 50% central height loss. Schmorl's node of the L2 inferior endplate. Multilevel facet osteoarthritis and degenerative disc disease of the lumbar spine. Mild osteoarthritis of the hips. No aggressive osseous lesions. IMPRESSION: 1. Irregular mucosal mass of the posterior right bladder wall, consistent with urothelial carcinoma, measures approximately 4.5 x 1.8 x 3.8 cm. 2. Multiple benign-appearing bilateral renal cysts, largest on the left measuring up to 8.3 cm maximum dimension. 3. Small right pleural effusion and trace left pleural effusion. 4. Nonspecific nodules within the visualized left lower lobe (as described above). 5. 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 6. Large left inguinal hernia contains fat, small amount of fluid and sigmoid colon. 7. Skeletal findings include a recent L2 compression fracture with approximately 50% central height reduction.
--- NOTE | 2018-03-05 14:51 | PN- Cardiology ---
Subjective Subjective: * No complaints * atrial fibrillation with controlled heart rate * creatinine 1.0 * hematuria noted with no drop in H/H Objective Vital Signs and I&Os Vital Signs Date Time Temp Pulse Resp B/P B/P Pulse O2 O2 Flow FiO2 Mean Ox Delivery Rate 03/05 1352 97.8 75 20 140/60 95 Room Air 03/05 0639 97.6 75 20 102/70 94 03/04 2334 97.8 84 20 140/80 94 03/04 2023 78 136/82 Intake & Output 03/05 1600 03/05 0800 03/05 0000 03/04 1600 03/04 0000 Intake Total 120 420 329 887 4287 Output Total 400 350 400 200 Balance -280 70 840 -80 950 Intake, IV 200 610 Intake, Oral 120 420 840 120 540 Number 1 Bowel Movements Output, Urine 400 350 400 200 Patient 138 lb 139 lb Weight Weight Bed scale Measurement Method Physical Exam: General: WD/WN male in NAD; alert and oriented x 3 Neck: no JVD, no carotid bruit Heart: irregularly irregular Lungs: clear bilaterally Extremities: no leg edema Assessment/Plan Assessment/Plan * This patient had some lethargy which appears to have resolved. Upon admission he also had a cough likely related to a viral bronchitic infection. He is now asymptomatic. * Atrial fibrillation. It is difficult to know how long he has been in this rhythm. His heart rate is not dramatically increased which is indicative of underlying conduction system disease although, he is on Metoprolol. Continue this medication at its current dose. Obtain an echocardiogram. Continue Eliquis 5mg BID unless urology feels that it is high risk. A cystoscopy is planned for tomorrow. The patient does not appears to have decompensated CHF or myocardial ischemia at this point in time. Continue telemetry? Yes
--- NOTE | 2018-03-05 18:38 | ECHOCARDIOGRAM REPORT ---
ARBEN MAYO Age: 87 : 1930 Gender: M Exam Date: 03/04/2018 16:59 Exam Location: 1 [address] Ht (in): 68 Wt (lb): 139 BSA: 1.74 BP: 118 / 60 Ordering Physician: Jason Griffiths MD Referring Physician: Mauricio Floyd MD, PhD Technologist: Bernice Reeves [facility] Room Number: [id number] Indications: AFIB/FLUTTER Rhythm: Sinus Technical Quality: fair FINDINGS Left Ventricle Normal left ventricular size with mild left ventricular hypertrophy. Normal systolic function with no obvious regional wall motion abnormalities. The ejection fraction is visually estimated at 60%. Right Ventricle The right ventricle is normal in size and function. Right Atrium The right atrium is mildly enlarged. Left Atrium The left atrium is moderately enlarged. The interatrial septum is intact. Mitral Valve The mitral valve demonstrates severe annular calcification with decreased leaflet excursion and moderate mitral stenosis. There is trace to mild mitral regurgitation. Aortic Valve Mildly thickened and sclerotic aortic valve with mild stenosis. There is moderate aortic regurgitation. Tricuspid Valve The tricuspid valve is normal in structure and function. There is moderate tricuspid regurgitation. Pulmonary artery systolic pressure is moderately elevated to 50mmHg. Pulmonic Valve Structurally normal pulmonic valve. There is no pulmonic regurgitation. Pericardium Normal pericardium without effusion. No pleural effusion. Great Vessels Normal aortic root dimension. The aortic arch and great vessels are well seen and are normal. CONCLUSIONS 1. Normal EF of 60%. 2. Mild left ventricular hypertrophy. 3. Mild right atrial and moderate left atrial enlargement. 4. Moderate mitral stenosis with mild regurgitation. 5. Moderate tricuspid regurgitation. 6. Mild aortic stenosis with moderate aortic regurgitation. Mauricio Floyd M.D. (Electronically Signed) Final Date: 05 March 2018 18:38 MEASUREMENTS (Male / Female) Normal Values 2D ECHO LV Diastolic Diameter PLAX 4.4 cm 4.2 - 5.9 / 3.9 - 5.3 cm LV Systolic Diameter PLAX 2.3 cm 2.1 - 4.0 cm LV Fractional Shortening PLAX 47.7 % 25 - 46 % LV Ejection Fraction 2D Teich 79.3 % IVS Diastolic Thickness 1.3 cm LVPW Diastolic Thickness 1.3 cm LV Relative Wall Thickness 0.6 RV Internal Dim ED PLAX 3.5 cm 1.9 - 3.8 cm LVOT Diameter 1.9 cm Aortic Root Diameter 3.9 cm LA Systolic Diameter LX 4.5 cm 3.0 - 4.0 / 2.7 - 3.8 cm LA Volume 85.0 cm 18 - 58 / 22 - 52 cm Ascending Aorta Diameter 3.8 cm DOPPLER AV Peak Velocity 259.0 cm/s AV Peak Gradient 26.8 mmHg AV Mean Velocity 177.0 cm/s AV Mean Gradient 14.0 mmHg AV Velocity Time Integral 56.2 cm LVOT Peak Velocity 141.0 cm/s LVOT Peak Gradient 8.0 mmHg LVOT Mean Velocity 97.8 cm/s LVOT Mean Gradient 5.0 mmHg LVOT Velocity Time Integral 20.2 cm LVOT Stroke Volume 57.3 cm AV Area Cont Eq vti 1.0 cm AV Area Cont Eq pk 1.5 cm MV Peak Velocity 161.0 cm/s MV Peak Gradient 10.4 mmHg MV Mean Velocity 69.9 cm/s MV Mean Gradient 3.0 mmHg Mitral E Point Velocity 125.0 cm/s MV PHT Velocity 175.0 cm/s MV Deceleration [place] 651.0 cm/s MV Pressure Half Time 80.6 ms MV Area PHT 2.7 cm MV Deceleration Time 261.0 ms TR Peak Velocity 336.0 cm/s TR Peak Gradient 45.2 mmHg Right Atrial Pressure 5.0 mmHg Pulmonary Artery Systolic Pressu 50.2 mmHg Right Ventricular Systolic Press 50.2 mmHg PV Peak Velocity 95.1 cm/s PV Peak Gradient 3.6 mmHg PV Mean Velocity 61.2 cm/s PV Mean Gradient 2.0 mmHg PV Velocity Time Integral 14.7 cm LV E' Lateral Velocity 10.5 cm/s Mitral E to LV E' Lateral Ratio 11.9 LV E' Septal Velocity 7.2 cm/s Mitral E to LV E' Septal Ratio 17.3
[2018-03-06 06:51] VITALS: BP 112/74
--- NOTE | 2018-03-06 07:24 | PN- Housestaff ---
[facility] 0723: Subjective Follow-up For: New onset Marcela rodriguez Acute kidney injury(improving) Generalized weakness probably due to dehydration (improving) Gross hematuria Tele-Events Since Last Visit: Marcela rodriguez with heart rate 6981 Subjective: No overnight events. Patient remained afebrile lipase and examined this morning. He denied any chest pain, short of breath, nausea, vomiting, chills, fever, abdominal pain dysuria. Family refused any surgical procedure so cystoscopy was cancelled this morning. We will arrange family meeting to decide about anticoagulation as he has hematuria. Family discussion had at bedside with patient, , and daughter. The patient wants to go home and does not want any further invasive procedures or surgeries. He says if he changes his mind he will see his urologist as an outpatient. Risks and benefits of Eliquis were discussed. It was explained that the patient is likely to continue to bleed while on Eliquis and may require transfusions, and also that this is a risk factor for CAD. It was also explained that without Eliquis he is at a higher risk from stroke, particularly with history of prior stroke. Family and patient understood and have decided to go forward with low dose Eliquis and follow up with cardiology, and understand they can discontinue this medicationin the future if bleeding continues. Patient refused home hospice, and wished to go home with home nurse and home PT. Review of Systems Constitutional: Reports: no symptoms. EENTM: Reports: no symptoms. Cardiovascular: Reports: no symptoms. Respiratory: Reports: no symptoms. Gastrointestinal: Reports: no symptoms. Genitourinary: Reports: no symptoms. Musculoskeletal: Reports: no symptoms. Neurological/Psychological: Reports: no symptoms. Objective Last 24 Hrs of Vital Signs/I&O Vital Signs Date Time Temp Pulse Resp B/P B/P Pulse O2 O2 Flow FiO2 Mean Ox Delivery Rate 03/06 0651 97.5 89 17 112/74 93 03/05 2235 97.5 80 24 90 03/05 2138 71 124/72 03/05 1352 97.8 75 20 140/60 95 Room Air Intake & Output 03/06 0800 04 0000 03/05 1600 Intake Total 600 705 500 Output Total 425 225 400 Balance 175 480 100 Intake, IV 600 225 Intake, Oral 480 500 Output, Urine 425 225 400 Patient 140 lb Weight Physical Exam General Appearance: Alert, Oriented X3, Cooperative Skin: No Rashes Skin Temp/Moisture Exam: Warm/Dry Sepsis Skin Exam (color): Normal for Ethnicity HEENT: Atraumatic, PERRLA, EOMI Neck: Supple Cardiovascular: Normal S1, Normal S2 Lungs: Clear to Auscultation Abdomen: Soft, No Tenderness Neurological: Normal Speech, Normal Tone Extremities: No Edema Assessment/Plan Assessment: 87 YO M ex-smoker with PMH of HTN, HLD, CHF (diastolic and systolic), 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 We are following patient on telemetry floor for following problems. Generalized weakness:(improving) -Possibly due to viral syndrom. -Blood and sputum cultures negative we will follow final results. -Probably due to dehydration or continuous use of steroid inhaler -We will encourage patient to take orally. Acute kidney injury:(improving) -Probably due to dehydration due to low intake of oral fluids and use of Lasix. -Gentle IV hydration -Monitor input and output -Avoid nephrotoxic medications -Keep holding Lasix New onset A. fib: -EKGs and troponins are negative. -Echocardiogram -Heart rate is under control and already on metoprolol. -CHADS-VASC score is 6. We will follow cardiology recommendations for anticoagulation. -Eliquis 5mg bid, holding it because of hematuria and cystoscopy. Gross hematuria: -Probably from bladder tumor -We will monitor for any gross hematuria or clot formation. -We will monitor H&H. -Possibly microscopic hematuria Precipitated with anticoagulation. -Family refused any surgery so cystoscopy was cancelled this morning. History of hypertension and hyperlipidemia: -Continue home medications History of diastolic heart failure: -Ejection fraction has improved to 60% according to recent echocardiogram. -Continue home medications. -Hold the Lasix considering his dehydration History of COPD: -TRC nebulization as needed -Continue his home medications History of gout: -Continue allopurinol DVT prophylaxis: Mechanical only due to thrombocytopenia CODE STATUS: DNR/DNI Problem List: 1. Hematuria 2. Acute renal insufficiency 3. 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 Patient feels much better today and has no complaints. Family discussion was had at bedside with patient, , and daughter. The patient wants to go home and does not want any further invasive procedures or surgeries. He says if he changes his mind he will see his urologist as an outpatient. Risks and benefits of Eliquis were discussed. It was explained that the patient is likely to continue to bleed while on Eliquis and may require transfusions, and also that this is a risk factor for CAD. It was also explained that without Eliquis he is at a higher risk from stroke, particularly with history of prior stroke. Family and patient understood and have decided to go forward with low dose Eliquis and follow up with cardiology, and understand they can discontinue this medicationin the future if bleeding continues. Patient refuses home hospice, and wishes to go home with home nurse and home PT. 1. New onset atrial fibrillation 2. Hypotension (resolved) 3. Viral syndrome 4. YOLANDA 5. Gross hematuria 6. Bladder mass Plan - May discharge home with primary focus on comfort as per patient wishes - Continue Metoprolol and Eliquis - Outpatient urology and cardiology follow up - Continue home medications
--- NOTE | 2018-03-06 08:06 | Discharge Summary ---
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 ED course: Vitals: Temperature 97.5, pulse 88, respiratory rate 20, blood pressure 149/74, oxygen saturation 94 room air Labs: WBC count 5.7, hemoglobin 12.1, hematocrit 36.7, platelet count 118, sodium 145, potassium 4.1, BUN 40, creatinine 1.4, BUNs/creatinine ratio 28.6, glucose 86, calcium 9.2, magnesium 2.3, total bilirubin 1.5, AST 16, hematocrit 25, alkaline phosphatase 102, troponin 0.03, proBNP 3670, albumin 3.2, globulin 3.4, albumin/globulin ratio 0.9 Blood cultures were obtained in ED. patient was given 1 dose of azithromycin and ceftriaxone. Generalized weakness: Initially patient was given antibiotics considering his imaging finding of infiltrate but later on bleeding study was repeated that showed possible atelectasis and patient remained afebrile with normal WBC count so he didn't receive any further antibiotics. Possibly patient had viral bronchitis that's causing his cough. Patient's blood culture and sputum culture remained negative. His generalized weakness was probably due to viral syndrome and dehydration. Later on his condition improved. And his appetite improved. Acute kidney injury: Patient presented with acute kidney injury probably due to dehydration and Lasix use. His Lasix was held. Patient was given gentle IV hydration and later on encouraged to take oral fluids. Nephrotoxic medications were provided and daily input and output was checked. His kidney functions improved. New onset A. fib: Patient presented with new-onset A. fib and his heart rate was under control as he was already on metoprolol. We continued his metoprolol. His EKGs and troponins remain negative for any ischemic cardiac injury. His CHADS-VASc score was 6. Cardiology consult was obtained and recommendations were followed. Patient was started on Eliquis 5 mg twice a day to prevent the risk of stroke in the setting of A. fib. But later on after the family meeting risks and benefits for Eliquis were discussed with the family and they agree to start 2.5 mg twice a day. Echocardiogram was done that showed ejection fraction 60%. Gross hematuria: Patient was admitted with microscopic hematuria from his bladder tumor that was never operated in the past. Eliquis was started for his A. fib that resulted into gross hematuria and urology consult was obtained. Eliquis was discontinued. Urology recommended cystoscopy and proceed further resection. But family refused any kind of surgery. Later on family meeting was arranged. Considering patient's gross hematuria on Eliquis from his bladder tumor, risks and benefits of taking Eliquis were discussed with the family and they agreed to start 2.5 mg twice a day. It was explained that the patient is likely to continue to bleed while on Eliquis and may require transfusions, and also that this is a risk factor for CAD. It was also explained that without Eliquis he is at a higher risk from stroke, particularly with history of prior stroke. Patient refused home hospice and he wished to go with home health services. Patient was instructed to follow cardiology for further recommendations or change in dose of Eliquis for any increase in bleeding in the future. Family agreed the plan. History of hypertension and hyperlipidemia: Continued home medications. History of diastolic heart failure: His ejection fraction has improved to 60% according to recent echocardiogram. His Lasix was resumed over the discharge and rest of his home medications. History of COPD: TRC nebulization as needed and continued his home medications. History of gout: Continued allopurinol. DVT prophylaxis: Mechanical only due to thrombocytopenia CODE STATUS: DNR/DNI Allergies: Coded Allergies: No Known Allergies (03/03/18) Pertinent Lab Results: Chest x-ray on 03/03/2018: IMPRESSION: Mild interstitial edema. Small right pleural effusion with associated right basilar infiltrate or atelectasis. Echocardiogram on 03/04/2018: CONCLUSIONS 1. Normal EF of 60%. 2. Mild left ventricular hypertrophy. 3. Mild right atrial and moderate left atrial enlargement. 4. Moderate mitral stenosis with mild regurgitation. 5. Moderate tricuspid regurgitation. 6. Mild aortic stenosis with moderate aortic regurgitation. CT scan abdomen/pelvis on 03/05/2018: IMPRESSION: 1. Irregular mucosal mass of the posterior right bladder wall, consistent with urothelial carcinoma, measures approximately 4.5 x 1.8 x 3.8 cm. 2. Multiple benign-appearing bilateral renal cysts, largest on the left measuring up to 8.3 cm maximum dimension. 3. Small right pleural effusion and trace left pleural effusion. 4. Nonspecific nodules within the visualized left lower lobe (as described above). 5. 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 6. Large left inguinal hernia contains fat, small amount of fluid and sigmoid colon. 7. Skeletal findings include a recent L2 compression fracture with approximately 50% central height reduction. Disposition Summary Disposition Principal Diagnosis: Generalized weakness possibly due to viral syndrome New-onset A. fib Acute kidney injury Gross hematuria Bladder tumor Additional Diagnosis: Hypertension and hyperlipidemia History of diastolic heart failure History of COPD History of gout Discharge Disposition: home health services Discharge Instructions General Discharge Information Code Status: Do Not Resucitate/Intubat Patient's Diet: Heart healthy diet Patient's Activity: Self-limited Follow-Up Instructions/Appts: Follow-up with your primary care physician in one week. Follow-up with your snorkelling instructor in 1 week Follow-up with your urologist in 1 week Medications at Discharge Discharge Medications: Continue taking these medications: Allopurinol (Allopurinol) 300 MG TABLET 1 Tablet ORAL DAILY Qty = 90 Comments: Last Taken:03/06/18 Time:08:40A.M Furosemide (Furosemide) 20 MG TABLET 1 Tablet ORAL DAILY Qty = 30 Comments: NOT GIVEN THIS ADMISSION Multivit-Min/FA/Lycopen/Lutein (Centrum Silver Tablet) 0.4 MG-300 MCG-250 MCG TABLET 1 Tablet ORAL DAILY Comments: NOT GIVEN IN HOSPITAL Ascorbic Acid (Vitamin C) 500 MG TABLET 1 Tablet ORAL DAILY Comments: NOT GIVEN THIS ADMISSION Vitamin E (Dl,Tocopheryl Acet) (Vitamin E) 400 UNIT CAPSULE 1 Capsule ORAL DAILY Comments: NOT GIVEN THIS ADMISSION Cholecalciferol (Vitamin D3) (Vitamin D) 1,000 UNIT TABLET 1 Tablet ORAL DAILY Comments: Last Taken:03/06/18 Time:8:40A.M Cyanocobalamin (Vitamin B-12) 1,000 MCG TABLET 1 Tablet ORAL DAILY Comments: Last Taken:03/06/18 Time:8:40A.M Atorvastatin Calcium (Atorvastatin Calcium) 10 MG TABLET 1 Tablet ORAL Every night Qty = 90 Comments: Last Taken:03/05/18 Time:9:33P.M Metoprolol Succinate (Metoprolol Succinate) 50 MG TAB.ER.24H 1 Tablet ORAL Every night Qty = 90 Comments: Last Taken:03/05/18 Time:9:38A.M Terazosin HCl (Terazosin HCl) 5 MG CAPSULE 1 Capsule ORAL Every night Qty = 90 Comments: NOT GIVEN THIS ADMISSION Ferrous Sulfate (Ferrous Sulfate) 325 MG (65 MG IRON) TABLET 1 Tablet ORAL Every night Comments: Last Taken:03/06/18 Time:8:40A.M Fluticasone/Salmeterol (Advair 500-50 Diskus) 500 MCG-50 MCG/DOSE BLST.W.DEV 1 Puff Inhale through mouth TWICE DAILY Qty = 60 Comments: NOT GIVEN IN HOSPITAL GIVEN [facility] Umeclidinium [place] (Incruse Ellipta) 62.5 MCG/ACTUATION BLST.W.DEV 1 Inhalation ORAL DAILY Qty = 30 Comments: NOT GIVEN THIS ADMISSION Albuterol Sulfate (Ventolin Hfa) 90 MCG HFA.AER.AD 2 Puff Inhale through mouth EVERY 4-6 HOURS NEEDED as needed for SHORTNESS OF BREATH Qty = 18 Start taking the following new medications: Apixaban (Eliquis) 2.5 MG TABLET 1 Tablet ORAL TWICE DAILY Qty = 60 No Refills Comments: Last Taken:03/05/18 Time:9:33P.M Copies To: Jose MURGUIA,Cholo Floyd MD PHD,Mauricio Tompkins
[2018-03-06 08:16] LABS: ABSOLUTE BASOPHIL COUNT 0 /CUMM (0.0-0.2); ABSOLUTE EOSINOPHIL COUNT 0 /CUMM (0.0-0.7); ABSOLUTE GRANULOCYTE CT 4.3 /CUMM (1.4-6.5); ABSOLUTE LYMPH COUNT 1.2 /CUMM (1.2-3.4); ABSOLUTE MONOCYTE COUNT 0.5 /CUMM (0.10-0.60); BASOPHIL % 0.6 % (0.0-2.0); EOSINOPHIL % 0 % (0-5); GRANULOCYTE % 72.2 % (42.2-75.2); HEMATOCRIT 33.7 % (42-52); MEAN CORPUSCULAR HGB 32.4 PG (27.0-31.0); MEAN CORPUSCULAR HGB CONC 32.6 G/DL (33.0-37.0); MEAN CORPUSCULAR VOLUME 99.2 FL (80.0-94.0); MEAN PLATELET VOLUME 10.4 FL (7.4-10.4); PLATELET COUNT 102 /CUMM (130-400); RBC DISTRIBUTION WIDTH 16.8 % (11.5-14.5); RED BLOOD CELL CT 3.39 /CUMM (4.70-6.10)
--- NOTE | 2018-03-06 10:05 | PN- Urology ---
Surgical Brief Attending Note Brief Attending Note: Pt feels comfortable and voiding well. vss afebrile. H/H stable. pt refused cysto-turbt and wants to go home-he is well aware that his decision could lead to his . I called pt's to confirm that she is aware of the pt's choice and she informed me that they had a long talk last night, and confirmed that he wishes to go home despite the bleeding, and will probably at home. Plan: dc home. cystoscopy/turbt cancelled for today.
[2018-03-06] MEDS ORDERED: ELIQUIS2.5 M1 PO (11:33)
--- NOTE | 2018-03-06 11:40 | Patient Discharge Instructions ---
Discharge Instructions General Discharge Information You were seen/treated for: New onset A.fib YOLANDA Hematuria Generalized weakness Watch for these problems: chest pain, hematuria, head injury after fall, urinary obstruction and bleeding from any part of body. If you experience any of these symptoms come to ED or call to your pcp. Special Instructions: Follow up with pcp in one week Follow up with education department chair in one week and discuss about the eliquis for change in dose or any bleeding issues. Diet Recommended Diet: Heart Healthy Activity Activity Self Limited: Yes Acute Coronary Syndrome Inclusion Criteria At DC or during hospital stay patient has or had the following: ACS DIAGNOSIS No Discharge Core Measures Meds if any: Prescribed or Continued at Discharge Meds if any: NOT Prescribed or Continued at Discharge Congestive Heart Failure Inclusion Criteria At DC or during hospital stay patient has or had the following: CHF DIAGNOSIS No Discharge Core Measures Meds if any: Prescribed or Continued at Discharge Meds if any: NOT Prescribed or Continued at Discharge Cerebrovascular accident Inclusion Criteria At DC or during hospital stay patient has or had the following: CVA/TIA Diagnosis No Discharge Core Measures Meds if any: Prescribed or Continued at Discharge Meds if any: NOT Prescribed or Continued at Discharge Venous thromboembolism Inclusion Criteria VTE Diagnosis No VTE Type NONE VTE Confirmed by (Test) NONE Discharge Core Measures - Per Current guidelines, there needs to be overlap - treatment for the first 5 days of Warfarin therapy. - If discharged on Warfarin prior to 5 days of - overlap therapy, the patient will need to be - assessed for post discharge needs including - *Post discharge parental anticoagulation - *Warfarin and/or parental anticoagulation education - *Follow up date to check INR post discharge At least 5 days overlap therapy as Inpatient No Meds if any: Prescribed or Continued at Discharge Note: Overlap Therapy is Warfarin and Anticoagulant Meds if any: NOT Prescribed or Continued at Discharge
== END 2018-03-06 13:20 | disposition home health service (06) | DRG 683 ==
LOC: ERH 10:21 → 1NO 12:22 → ERHI 12:22 → ENRESERV 13:37 → ENTRNSPT 14:08 → EDTRNSPTSTS 14:26 → 1NO 14:28 → CMPTRNSPT 14:51 → 1NO 03-04 19:58 → ENPENDDIS 03-06 11:51 → ENTRNSPT 03-06 13:08 → EDTRNSPTSTS 03-06 13:19 → 1NO 03-06 13:20 → CMPTRNSPT 03-06 13:48
PROVIDERS: Emergency Medicine; Student in an Organized Health Care Education/Training Program
DX: N17.9 Acute kidney failure, unspecified (principal); I13.0 Hypertensive heart and chronic kidney disease with heart failure and stage 1 through stage 4 chronic kidney disease, or unspecified chronic kidney disease; I95.9 Hypotension, unspecified; D69.6 Thrombocytopenia, unspecified; I48.91 Unspecified atrial fibrillation; F50.89 Other specified eating disorder; I50.32 Chronic diastolic (congestive) heart failure; I69.354 Hemiplegia and hemiparesis following cerebral infarction affecting left non-dominant side; J98.11 Atelectasis; J44.9 Chronic obstructive pulmonary disease, unspecified; N18.9 Chronic kidney disease, unspecified; M10.9 Gout, unspecified; Z79.51 Long term (current) use of inhaled steroids; Z87.891 Personal history of nicotine dependence; Z66 Do not resuscitate; D64.9 Anemia, unspecified; C67.9 Malignant neoplasm of bladder, unspecified; I25.10 Atherosclerotic heart disease of native coronary artery without angina pectoris
CPT/HCPCS: 1NSP; 36415; 36592; 71045; 74178; 81001; 82436; 87040; 87070; 87086; 93005; 93010; 93306; 97116-GO; 97161-GP; 97530-GO; J0696; J3490; J7040; J7042; Q9965

== ENCOUNTER 2018-03-08 13:24 | Emergency (ER) | payer OTHER ==
[~2018-03-08] VITALS: Ht 167.6 cm; Wt 60.8 kg
[~2018-03-08 13:24] MED LIST: ADVAIR 500-501 EACH INH; ALLOPURINOL300 M1 PO; ATORVASTATIN CA10 M1 PO; CENTRUM SILVER1 EAC3 PO; ELIQUIS2.5 M1 PO; FERROUS SULFAT325 M3 PO; FUROSEMIDE20 M1 PO; INCRUSE ELLI62.5 MCG PO; METOPROLOL SUCC50 M2 PO; TERAZOSIN HCL5 M1 PO; VENTOLIN HFA18 GM INH; VITAMIN B-121000 MC3 PO; VITAMIN C500 M8 PO; VITAMIN D1000 UNIT PO; VITAMIN E400 UNI1 PO
[2018-03-08 13:32] VITALS: BP 135/61
--- NOTE | 2018-03-08 13:50 | ED GI/GU/ABDOMINAL COMPLAINT ---
History of Present Illness General Chief Complaint: Male Genitourinary Problems Stated Complaint: HEMATURIA TODAY Source: patient, family, old records Exam Limitations: no limitations Vital Signs & Intake/Output Vital Signs & Intake/Output Vital Signs Date Time Temp Pulse Resp B/P B/P Pulse O2 O2 Flow FiO2 Mean Ox Delivery Rate 03/08 1346 96 Nasal 2.0L Cannula 03/08 1332 76 20 135/61 96 Nasal 2.0L Cannula Allergies Coded Allergies: No Known Allergies (03/03/18) Reconcile Medications Albuterol Sulfate (Ventolin Hfa) 90 MCG HFA.AER.AD 2 PUF INH Q4-6 PRN PRN SHORTNESS OF BREATH (Reported) Allopurinol 300 MG TABLET 1 TAB PO DAILY GOUT (Reported) Apixaban (Eliquis) 2.5 MG TABLET 1 TAB PO BID Blood thinner Ascorbic Acid (Vitamin C) 500 MG TABLET 1 TAB PO DAILY VITAMIN SUPPORT ( Reported) Atorvastatin Calcium 10 MG TABLET 1 TAB PO QPM CHOLESTEROL (Reported) Cholecalciferol (Vitamin D3) (Vitamin D) 1,000 UNIT TABLET 1 TAB PO DAILY VITAMIN SUPPORT (Reported) Cyanocobalamin (Vitamin B-12) 1,000 MCG TABLET 1 TAB PO DAILY VITAMIN SUPPORT (Reported) Ferrous Sulfate 325 MG (65 MG IRON) TABLET 1 TAB PO QPM VITAMIN SUPPORT ( Reported) Fluticasone/Salmeterol (Advair 500-50 Diskus) 500 MCG-50 MCG/DOSE BLST.W.DEV 1 PUF INH BID BREATHING PROBLEMS (Reported) Furosemide 20 MG TABLET 1 TAB PO DAILY WATER RETENTION (Reported) Metoprolol Succinate 50 MG TAB.ER.24H 1 TAB PO QPM HEART (Reported) Multivit-Min/FA/Lycopen/Lutein (Centrum Silver Tablet) 0.4 MG-300 MCG-250 MCG TABLET 1 TAB PO DAILY VITAMIN SUPPORT (Reported) Terazosin HCl 5 MG CAPSULE 1 CAP PO QPM SLEEP (Reported) Umeclidinium [place] (Incruse Ellipta) 62.5 MCG/ACTUATION BLST.W.DEV 1 INH PO DAILY BREATHING PROBLEMS (Reported) Vitamin E (Dl,Tocopheryl Acet) (Vitamin E) 400 UNIT CAPSULE 1 CAP PO DAILY VITAMIN SUPPORT (Reported) Triage Note: RECEIVED 87 YO MALE BIBA FROM HOME WITH C/O NEW ONSET HEMATURIA THIS AM. SULLIVAN RED URINE REPORTED BY [facility]. PT WAS HERE IN THE ED YESTERDAY FOR AFIB AND STARTED ON ELIQUIS. DR RUANO IN TO EVALUATE PT UPONA RRIVAL TO THE ED. Triage Nurses Notes Reviewed? 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 He was placed on Eliquis and Cardizem and discharged home after being seen by physical therapy. Earlier today he had gross hematuria, and visiting nurse saw this and sent him in to ER. A family meeting was held prior to discharge with myself and it was decided that the patient did not want any treatment or workup for his bladder mass. His main goal is comfort and being home with his family. Eliquis was started for new onset atrial fibrillation, and patient and family understood that there might be some hematuria due to his bladder mass. The patient does not want to be in the hospital or undergo any more tests. After a family discussion here in the ER, it was decided that Eliquis will be stopped, and we will start ASA 81mg daily for atrial fibrillation, with the understand that this will increase the risk of stroke, but will hopefully decrease bleeding risk. The patient and family understand that they can stop ASA at any time if they want to, and understand the risks of that. They will follow up with his PCP. Past History Travel History Traveled to [place] past 21 day No Medical History Any Pertinent Medical History? 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 No Review of Systems Review of Systems Constitutional: Reports: no symptoms. EENTM: Reports: no symptoms. Respiratory: Reports: no symptoms. Cardiovascular: Reports: no symptoms. GI: Reports: no symptoms. Genitourinary: Reports: no symptoms. Musculoskeletal: Reports: no symptoms. Skin: Reports: no symptoms. Neurological/Psychological: Reports: no symptoms. Hematologic/Endocrine: Reports: no symptoms. Immunologic/Allergic: Reports: no symptoms. All Other Systems: Reviewed and Negative Physical Exam Physical Exam General Appearance: well developed/nourished, no apparent distress Head: atraumatic, normal appearance Eyes: Bilateral: normal appearance. Ears, Nose, Throat, Mouth: hearing grossly normal, moist mucous membrane Neck: normal inspection, supple, full range of motion Respiratory: normal breath sounds, no respiratory distress Cardiovascular: regular rate/rhythm Gastrointestinal: soft, non-tender Male Genitals: hernia Back: normal inspection, normal range of motion Extremities: normal range of motion Neurologic/Psych: awake, alert, oriented x 3, normal mood/affect Skin: intact, normal color, warm/dry Core Measures ACS in differential dx? No Sepsis Present: No Sepsis Focused Exam Completed? No Progress Differential Diagnosis: hernia, prostatitis, testicular torsion, ureterolithiasis, urinary retention, urethritis, UTI/pyelo Plan of Care: See HPI for plan. Initial ED EKG: none Departure Departure Disposition: HOME OR SELF CARE Condition: Stable Clinical Impression Primary Impression: Gross hematuria Secondary Impressions: Bladder mass, Paroxysmal atrial fibrillation Referrals: Jose MURGUIA,Cholo Bonilla (PCP/Family) Additional Instructions: Follow up with your PCP as needed. As discussed, we will stop Eliquis and start Aspirin 81mg daily. You still may have some hematuria. As per your wishes, you do not have to come to the hospital when this happens. If you are feeling weak, short of breath, fatigued, or pale, return to your PCP or emergency department, as you may need a blood transfusion. You are aware you are at increased risk of stroke now that the Eliquis has been stopped. Return to ER with any new or worsening symptoms. Departure Forms: Customer Survey General Discharge Information
== END 2018-03-08 14:18 ==
LOC: ERH 13:24
DX: R31.0 Gross hematuria (principal); I48.0 Paroxysmal atrial fibrillation; N32.89 Other specified disorders of bladder

== ENCOUNTER 2018-03-18 17:12 | Inpatient (IN) | payer OTHER ==
[~2018-03-18] VITALS: Ht 172.7 cm; Wt 60.4 kg
[2018-03-18 18:46] LABS: ABSOLUTE BASOPHIL COUNT 0 /CUMM (0.0-0.2); ABSOLUTE EOSINOPHIL COUNT 0 /CUMM (0.0-0.7); ABSOLUTE GRANULOCYTE CT 4.2 /CUMM (1.4-6.5); ABSOLUTE LYMPH COUNT 0.5 /CUMM (1.2-3.4); ABSOLUTE MONOCYTE COUNT 0.2 /CUMM (0.10-0.60); BASOPHIL % 0.3 % (0.0-2.0); EOSINOPHIL % 0 % (0-5); GRANULOCYTE % 85.8 % (42.2-75.2); HEMATOCRIT 34.1 % (42-52); MEAN CORPUSCULAR HGB 32.2 PG (27.0-31.0); MEAN CORPUSCULAR HGB CONC 33.1 G/DL (33.0-37.0); MEAN CORPUSCULAR VOLUME 97.5 FL (80.0-94.0); MEAN PLATELET VOLUME 8.9 FL (7.4-10.4); PLATELET COUNT 118 /CUMM (130-400); RBC DISTRIBUTION WIDTH 17.7 % (11.5-14.5); WHITE BLOOD CELL COUNT 4.9 /CUMM (4.8-10.8)
--- NOTE | 2018-03-18 19:18 | ED GI/GU/ABDOMINAL COMPLAINT ---
History of Present Illness General Chief Complaint: Abdominal Pain/Flank Pain Stated Complaint: SCROTAL AREA PAIN AND HERNIA Source: patient Exam Limitations: no limitations Allergies Coded Allergies: No Known Allergies (03/03/18) Reconcile Medications Albuterol Sulfate (Ventolin Hfa) 90 MCG HFA.AER.AD 2 PUF INH Q4-6 PRN PRN SHORTNESS OF BREATH (Reported) Allopurinol 300 MG TABLET 1 TAB PO DAILY GOUT (Reported) Apixaban (Eliquis) 2.5 MG TABLET 1 TAB PO BID Blood thinner Ascorbic Acid (Vitamin C) 500 MG TABLET 1 TAB PO DAILY VITAMIN SUPPORT ( Reported) Atorvastatin Calcium 10 MG TABLET 1 TAB PO QPM CHOLESTEROL (Reported) Cholecalciferol (Vitamin D3) (Vitamin D) 1,000 UNIT TABLET 1 TAB PO DAILY VITAMIN SUPPORT (Reported) Cyanocobalamin (Vitamin B-12) 1,000 MCG TABLET 1 TAB PO DAILY VITAMIN SUPPORT (Reported) Ferrous Sulfate 325 MG (65 MG IRON) TABLET 1 TAB PO QPM VITAMIN SUPPORT ( Reported) Fluticasone/Salmeterol (Advair 500-50 Diskus) 500 MCG-50 MCG/DOSE BLST.W.DEV 1 PUF INH BID BREATHING PROBLEMS (Reported) Furosemide 20 MG TABLET 1 TAB PO DAILY WATER RETENTION (Reported) Metoprolol Succinate 50 MG TAB.ER.24H 1 TAB PO QPM HEART (Reported) Multivit-Min/FA/Lycopen/Lutein (Centrum Silver Tablet) 0.4 MG-300 MCG-250 MCG TABLET 1 TAB PO DAILY VITAMIN SUPPORT (Reported) Terazosin HCl 5 MG CAPSULE 1 CAP PO QPM SLEEP (Reported) Umeclidinium [employer] (Incruse Ellipta) 62.5 MCG/ACTUATION BLST.W.DEV 1 INH PO DAILY BREATHING PROBLEMS (Reported) Vitamin E (Dl,Tocopheryl Acet) (Vitamin E) 400 UNIT CAPSULE 1 CAP PO DAILY VITAMIN SUPPORT (Reported) Triage Note: RECEIVED 87 YO MALE BIBA FROM HOME WITH REPORT OF WORSENING PAIN TO SCROTAL AREA HERNIA (CHRONIC). PT SENT BY PMD FOR EVALUATION. NO C/O CP/SOB. PT HAS HAD HERNIA ALL HIS LIFE, IT HAS ALWAYS BEEN PAINFUL, BUT LATELY IT HAS BECOME MUCH WORSE. Triage Nurses Notes Reviewed? yes Onset: Abrupt Duration: day(s): Timing: recent history Quality/Severity: moderate, sharpness Location: scrotal Activities at Onset: none HPI: 87-year-old male with a large scrotal hernia has been present for the past 4 years comes in with increased pain. Sharp. Continuous. Denies any fever or vomiting. Some increased constipation. He had a bowel movement yesterday. Previous appendectomy. Comes in for further evaluation due to increased pain. The size of the hernia has increased over the past year but no recent changes in size. (Jero Romero) Vital Signs & Intake/Output Vital Signs & Intake/Output Vital Signs Date Time Temp Pulse Resp B/P B/P Pulse O2 O2 Flow FiO2 Mean Ox Delivery Rate 03/184 97.0 110 20 148/66 97 Room Air 03/18 1950 97.5 60 20 168/90 97 Room Air 03/18 1726 97.6 86 18 180/92 94 Room Air (Thomas oCrcoran DO) Past History Travel History Traveled to [place] past 21 day No Medical History Any Pertinent Medical History? 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 No (Jero Romero) Review of Systems Review of Systems Constitutional: Reports: no symptoms. EENTM: Reports: no symptoms. Respiratory: Reports: no symptoms. Cardiovascular: Reports: no symptoms. GI: Reports: see HPI. Genitourinary: Reports: see HPI. Musculoskeletal: Reports: no symptoms. Skin: Reports: no symptoms. Neurological/Psychological: Reports: no symptoms. Hematologic/Endocrine: Reports: no symptoms. Immunologic/Allergic: Reports: no symptoms. All Other Systems: Reviewed and Negative (Jero Romero) Physical Exam Physical Exam General Appearance: alert, awake, mild distress Head: atraumatic Eyes: Bilateral: normal appearance. Ears, Nose, Throat, Mouth: hearing grossly normal Neck: normal inspection Respiratory: no respiratory distress Cardiovascular: regular rate/rhythm Gastrointestinal: soft, tenderness, hernia, patient has a large scrotal hernia approximately cantaloupe size, tenderness to palpation, Male Genitals: normal genitalia (see above), hernia Back: normal inspection Extremities: normal range of motion Neurologic/Psych: awake, alert, oriented x 3 Skin: intact, normal color Core Measures ACS in differential dx? No Sepsis Present: No Sepsis Focused Exam Completed? No (Harinder MERINO,Jero) Progress Differential Diagnosis: bowel obstruction, cholecystitis, diverticulitis, gastritis, hepatitis, hemorrhoids, ischemic bowel, pancreatitis, PUD/GERD, pyelonephritis, testicular torsion, ureterolithiasis, urinary retention, urethritis, UTI/pyelo Plan of Care: Orders Procedure Date/time Status Add-on Test (ER Only) 03/18 2154 Active PARTIAL THROMBOPLASTIN TIME 03/18 1820 Complete PROTHROMBIN TIME 03/18 1820 Complete TROPONIN LEVEL 03/18 1740 Complete LACTIC ACID 03/18 1740 Complete COMPREHENSIVE METABOLIC PANEL 03/18 1740 Complete CBC WITHOUT DIFFERENTIAL 03/18 1740 Complete EKG 03/18 1740 Active Current Medications Sig/Jamilah Start time Last Medication Dose Stop Time Status Admin Sodium Chloride 1,000 ML ONCE ONE 03/18 2200 AC 03/18 (Normal Saline 0.9%) 03/19 1759 2215 Laboratory Tests 03/18/18 2040: Lactic Acid Cancelled 03/18/18 1820: Anion Gap 10, Estimated GFR 48 L, BUN/Creatinine Ratio 22.1, Glucose 111 H, Lactic Acid 1.0, Calcium 9.3, Total Bilirubin 1.1, AST 16 L, ALT 23, Alkaline Phosphatase 112, Troponin I 0.02, Total Protein 6.7, Albumin 3.4 L, Globulin 3.3, Albumin/Globulin Ratio 1.0 L, PT 12.3, INR 1.13, APTT 32, CBC w Diff NO MAN DIFF REQ, RBC 3.50 L, MCV 97.5 H, MCH 32.2 H, MCHC 33.1, RDW 17.7 H, MPV 8.9, Gran % 85.8 H, Lymphocytes % 9.4 L, Monocytes % 4.5, Eosinophils % 0, Basophils % 0.3, Absolute Granulocytes 4.2, Absolute Lymphocytes 0.5 L, Absolute Monocytes 0.2, Absolute Eosinophils 0, Absolute Basophils 0 Diagnostic Imaging: Viewed by Me: CT Scan. Discussed w/RAD: CT Scan. Radiology Impression: PATIENT: ARBEN MAYO PRESENT AGE: 87 PATIENT ACCOUNT NO: [id number] : [birth year] LOCATION: [facility] ORDERING PHYSICIAN: Jero MERINO SERVICE DATE: 03/18/18 EXAM TYPE: CAT - CT ABD & PELVIS W IV CONTRAST EXAMINATION: CT ABDOMEN AND PELVIS WITH CONTRAST CLINICAL INFORMATION: Lower abdominal pain and large hernia. COMPARISON: CT from 03/05/2018. TECHNIQUE: Multidetector volumetric imaging was performed of the abdomen and pelvis following IV administration of 95 mL of Optiray 320 contrast. Sagittal and coronal reformatted images were obtained on the technologist's workstation. DLP: 460.73 mGy-cm FINDINGS: The large left inguinal hernia has increased in size and now contains multiple loops of small bowel which are decompressed. There is also increased fluid in the dependent portion of the hernia sac as compared to the previous examination. Colonic loops of bowel are present within the hernia, as noted on prior imaging without wall thickening or inflammatory change. The mesenteric fat within the hernia is hazier in appearance as compared to the previous examination. There is no evidence of a bowel obstruction proximal to the hernia. Elevation of the right hemidiaphragm again noted with a right-sided basilar pleural effusion. A rounded area of consolidation is partially visualized in a subpleural distribution laterally in the right middle lobe. Emphysematous changes are present. A small 9 mm groundglass nodular focus in the left lower lobe posteriorly is without change. Both atria of the heart are dilated, left greater than right side. 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 No biliary ductal dilatation is seen. There is a small 9 mm gallstone dependently within the gallbladder, also visible on prior imaging. Renal cysts are present without hydronephrosis. The pancreas, spleen, adrenal glands appear normal. A soft tissue mass is again visible at the bladder base, though difficult to evaluate due to partial decompression. The prostate gland is enlarged. No new adenopathy is seen. There is significant atherosclerotic wall calcification of the vasculature. 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 Colonic diverticulosis present without evidence of diverticulitis. Extensive lumbar spondylosis again noted with chronic compression fracture deformities. There are questionable pagetoid changes in the T11 and T12 vertebrae, incompletely visualized. Compression fracture at L2 is unchanged in appearance. Extensive facet arthrosis again visible. IMPRESSION: Further increase in size of a large left inguinal hernia with stranding of the fat in the hernia sac. Increased fluid as well in the dependent portion of the sac. No large bowel wall thickening or evidence of obstruction. Decompressed small bowel loops now within the sac which were not present previously. Bladder mass partially visualized and described on the prior study. Partially visualized nodular soft tissue density in the right middle lobe laterally and a groundglass nodular focus in the left lower lobe. Recommend follow-up evaluation with a dedicated CT scan of the chest. Numerous other findings as detailed on the prior examination. Findings discussed with WILBER Pizano at 7:54 PM on 03/18/2018. DICTATED BY: Alex Luu MD DATE/TIME DICTATED:03/18/181935 BISTRO SERVER:NINO DATE/TIME TRANSCRIBED:1935 CONFIDENTIAL, DO NOT COPY WITHOUT APPROPRIATE AUTHORIZATION. < Electronically signed in Other Vendor System> SIGNED BY: Alex Luu MD 03/18/181955 Initial ED EKG: rate (81), AFIB Comments: 03/18/2018 10:59:56 PM Patient was seen and evaluated by the surgery team. Patient is being brought to the OR tonight. (Jero Romero) Departure Departure Disposition: STILL A PATIENT Condition: Stable Clinical Impression Primary Impression: Hernia of scrotum Referrals: Cholo Garcia MD (PCP/Family) Departure Forms: Customer Survey General Discharge Information OR/GI Note Spoke With: Billy Minor MD ED Treatment Decision: ARBEN MAYO requires urgent operative management or an emergent procedure that cannot be performed in the Emergency Room setting. Transport To: [facility] (Jero Romero) PA/HAND CUTTER APPRENTICE Co-Sign Statement Statement: ED Attending supervision documentation- [x] I saw and evaluated the patient. I have also reviewed all the pertinent lab results and diagnostic results. I agree with the findings and the plan of care as documented in the PA's/HAND CUTTER APPRENTICE's documentation. [] I have reviewed the ED Record and agree with the PA's/HAND CUTTER APPRENTICE's documentation. [] Additions or exceptions (if any) to the PAs/HAND CUTTER APPRENTICE's note and plan are summarized below: [] I saw and personally examined the patient and I agree with the PAs evaluation. He has a large left inguinal hernia. It was nonreducible. It was exquisitely tender. (Nilo HAYES,Thomas Santiago) Critical Care Note Critical Care Note Critical Care Time: 30-74 min (35) (Harinder MERINO,Jero)
--- NOTE | 2018-03-18 19:56 | CT SCAN REPORT ---
EXAMINATION: CT ABDOMEN AND PELVIS WITH CONTRAST CLINICAL INFORMATION: Lower abdominal pain and large hernia. COMPARISON: CT from 03/05/2018. TECHNIQUE: Multidetector volumetric imaging was performed of the abdomen and pelvis following IV administration of 95 mL of Optiray 320 contrast. Sagittal and coronal reformatted images were obtained on the technologist's workstation. DLP: 460.73 mGy-cm FINDINGS: The large left inguinal hernia has increased in size and now contains multiple loops of small bowel which are decompressed. There is also increased fluid in the dependent portion of the hernia sac as compared to the previous examination. Colonic loops of bowel are present within the hernia, as noted on prior imaging without wall thickening or inflammatory change. The mesenteric fat within the hernia is hazier in appearance as compared to the previous examination. There is no evidence of a bowel obstruction proximal to the hernia. Elevation of the right hemidiaphragm again noted with a right-sided basilar pleural effusion. A rounded area of consolidation is partially visualized in a subpleural distribution laterally in the right middle lobe. Emphysematous changes are present. A small 9 mm groundglass nodular focus in the left lower lobe posteriorly is without change. Both atria of the heart are dilated, left greater than right side. 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 No biliary ductal dilatation is seen. There is a small 9 mm gallstone dependently within the gallbladder, also visible on prior imaging. Renal cysts are present without hydronephrosis. The pancreas, spleen, adrenal glands appear normal. A soft tissue mass is again visible at the bladder base, though difficult to evaluate due to partial decompression. The prostate gland is enlarged. No new adenopathy is seen. There is significant atherosclerotic wall calcification of the vasculature. 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 Colonic diverticulosis present without evidence of diverticulitis. Extensive lumbar spondylosis again noted with chronic compression fracture deformities. There are questionable pagetoid changes in the T11 and T12 vertebrae, incompletely visualized. Compression fracture at L2 is unchanged in appearance. Extensive facet arthrosis again visible. IMPRESSION: Further increase in size of a large left inguinal hernia with stranding of the fat in the hernia sac. Increased fluid as well in the dependent portion of the sac. No large bowel wall thickening or evidence of obstruction. Decompressed small bowel loops now within the sac which were not present previously. Bladder mass partially visualized and described on the prior study. Partially visualized nodular soft tissue density in the right middle lobe laterally and a groundglass nodular focus in the left lower lobe. Recommend follow-up evaluation with a dedicated CT scan of the chest. Numerous other findings as detailed on the prior examination. Findings discussed with WILBER Pizano at 7:54 PM on 03/18/2018.
[2018-03-18 22:11] LABS: PT 12.3 SEC (9.4-12.5); PTT 32 SEC (25-37)
--- NOTE | 2018-03-18 22:26 | RADIOLOGY REPORT ---
EXAMINATION: XR PORTABLE CHEST CLINICAL INFORMATION: Preoperative film. COMPARISON: CT from earlier in the same night. Chest x-ray dated 03/03/2018. TECHNIQUE: Portable frontal view of the chest was obtained. FINDINGS: A small right-sided pleural effusion again visible with mild cardiomegaly. Associated right basilar compressive atelectasis noted. Mediastinal contours are normal. The imaged left lung is clear. No acute osseous abnormality is seen. There are moderate degenerative changes of the left shoulder. IMPRESSION: Stable small right-sided pleural effusion with right basilar compressive atelectasis. Mild cardiomegaly.
--- NOTE | 2018-03-18 23:11 | History & Physical Pre-Op ---
BiancaEve 03/18/18 5560: General Information and HPI MD Statement: I have seen and personally examined ARBEN MAYO and documented this H&P. The patient is a 87 year old M who presented with a patient stated chief complaint of []. abdominal discomfort and fullness with pain radiating in the groin area along with nausea. Patient states he has had aninguinal hernia for several years but recently approximately 5 days ago he was unable to self reduce the hernia. Patient reported moderate discomfort to the weekend up until today when he went to see his primary care physician . At that point he was feeling better and it was thought that he could see a surgeon as an outpatient. However this evening his pain returns and he was unable to reduce this hernia. Prior surgeries include right inguinal hernia repair and appendectomy. While here in the ER he was able to partially self reduce the hernia. Allergies/Medications Allergies: Coded Allergies: No Known Allergies (03/03/18) Home Med list Albuterol Sulfate (Ventolin Hfa) 90 MCG HFA.AER.AD 2 PUF INH Q4-6 PRN PRN SHORTNESS OF BREATH (Reported) Allopurinol 300 MG TABLET 1 TAB PO DAILY GOUT (Reported) Apixaban (Eliquis) 2.5 MG TABLET 1 TAB PO BID Blood thinner Ascorbic Acid (Vitamin C) 500 MG TABLET 1 TAB PO DAILY VITAMIN SUPPORT ( Reported) Atorvastatin Calcium 10 MG TABLET 1 TAB PO QPM CHOLESTEROL (Reported) Cholecalciferol (Vitamin D3) (Vitamin D) 1,000 UNIT TABLET 1 TAB PO DAILY VITAMIN SUPPORT (Reported) Cyanocobalamin (Vitamin B-12) 1,000 MCG TABLET 1 TAB PO DAILY VITAMIN SUPPORT (Reported) Ferrous Sulfate 325 MG (65 MG IRON) TABLET 1 TAB PO QPM VITAMIN SUPPORT ( Reported) Fluticasone/Salmeterol (Advair 500-50 Diskus) 500 MCG-50 MCG/DOSE BLST.W.DEV 1 PUF INH BID BREATHING PROBLEMS (Reported) Furosemide 20 MG TABLET 1 TAB PO DAILY WATER RETENTION (Reported) Metoprolol Succinate 50 MG TAB.ER.24H 1 TAB PO QPM HEART (Reported) Multivit-Min/FA/Lycopen/Lutein (Centrum Silver Tablet) 0.4 MG-300 MCG-250 MCG TABLET 1 TAB PO DAILY VITAMIN SUPPORT (Reported) Terazosin HCl 5 MG CAPSULE 1 CAP PO QPM SLEEP (Reported) Umeclidinium [place] (Incruse Ellipta) 62.5 MCG/ACTUATION BLST.W.DEV 1 INH PO DAILY BREATHING PROBLEMS (Reported) Vitamin E (Dl,Tocopheryl Acet) (Vitamin E) 400 UNIT CAPSULE 1 CAP PO DAILY VITAMIN SUPPORT (Reported) Past History Medical History Neurological: NONE EENT: NONE Cardiovascular: CHF, hypertension, hyperlipidemia Respiratory: COPD Gastrointestinal: NONE Hepatic: NONE Renal: NONE Musculoskeletal: gout Psychiatric: NONE Endocrine: NONE Blood Disorders: NONE Cancer(s): NONE MANAGER PHOTO/Reproductive: BLADDER TUMOR History of MRSA: No History of VRE: No History of CDIFF: No Surgical History Pertinent Surgical History: appendectomy, hernia repair-incisional Review of Systems Review of Systems: Constitutional: No chills no fever no weakness HEENT: No blurred vision visual changes no throat pain nasal pain CV: denies chest pain edema orthopnea syncopal episode no peripheral edema Respiratory: No cough hemoptysis shortness of breath or wheeze GI: pos abdominal pain, no bloating constipation or diarrhea or bloody stools no vomiting Musculoskeletal: No neck pain back pain or joint swelling Skin: No recent acute changes in skin Neurological: No dizziness weakness or acute mental status changes Hematologic: no history of blood dyscrasia to include PE DVT or bleeding disorder No reported reaction to general anesthetics No recent fevers fluids or infections Exam & Diagnostic Data Last 24 Hrs of Vital Signs/I&O PE: Patient is alert and oriented 3 in no apparent distress HEENT: Within normal limits Neck: Supple nontender with active range of motion no carotid bruits no meningeal signs Chest: Clear to auscultation symmetric without rales rhonchi or wheeze Heart regular rate and rhythm without murmurs rubs or gallops peripheral vascular normal without dependent edema. Abdomen: Soft rounded without distention, bowel sounds present, tender to palpation left groin and scrotum, no guarding or rebound, there is a massive left inguinal hernia with bowel contents present Musculoskeletal: Patient can stand erect and can ambulate assisted with a cane. 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 He has been self reducing for years without difficulty. Recently the groin hernia has become incarcerated. He has become uncomfortable and has been having issues with self reduction. Family is present the risks benefits and alternatives to surgical procedure have been discussed in length and the patient and family agrees to proceed with surgical correction. Patient has been nothing by mouth since this morning. Admission Lab Results I reviewed the following labs: Laboratory Tests 03/18 1820 Chemistry Sodium (137 - 145 mmol/L) 140 Potassium (3.5 - 5.1 mmol/L) 4.5 Chloride (98 - 107 mmol/L) 101 Carbon Dioxide (22 - 30 mmol/L) 30 Anion Gap (5 - 16) 10 BUN (9 - 20 mg/dL) 31 H Creatinine (0.7 - 1.2 mg/dL) 1.4 H Estimated GFR (>60 ml/min) 48 L BUN/Creatinine Ratio (7 - 25 %) 22.1 Glucose (65 - 99 mg/dL) 111 H Lactic Acid (0.7 - 2.1 mmol/L) Cancelled 1.0 Calcium (8.4 - 10.2 mg/dL) 9.3 Total Bilirubin (0.2 - 1.3 mg/dL) 1.1 AST (17 - 59 U/L) 16 L ALT (21 - 72 U/L) 23 Alkaline Phosphatase (< 127 U/L) 112 Troponin I (<0.11 ng/ml) 0.02 Total Protein (6.3 - 8.2 g/dL) 6.7 Albumin (3.5 - 5.0 g/dL) 3.4 L Globulin (1.9 - 4.2 gm/dL) 3.3 Albumin/Globulin Ratio (1.1 - 2.2 %) 1.0 L Coagulation PT (9.4 - 12.5 SEC) 12.3 INR (0.90 - 1.17) 1.13 APTT (25 - 37 SEC) 32 Hematology CBC w Diff NO MAN DIFF REQ WBC (4.8 - 10.8 /CUMM) 4.9 RBC (4.70 - 6.10 /CUMM) 3.50 L Hgb (14.0 - 18.0 G/DL) 11.3 L Hct (42 - 52 %) 34.1 L MCV (80.0 - 94.0 FL) 97.5 H MCH (27.0 - 31.0 PG) 32.2 H MCHC (33.0 - 37.0 G/DL) 33.1 RDW (11.5 - 14.5 %) 17.7 H Plt Count (130 - 400 /CUMM) 118 L MPV (7.4 - 10.4 FL) 8.9 Gran % (42.2 - 75.2 %) 85.8 H Lymphocytes % (20.5 - 51.1 %) 9.4 L Monocytes % (1.7 - 9.3 %) 4.5 Eosinophils % (0 - 5 %) 0 Basophils % (0.0 - 2.0 %) 0.3 Absolute Granulocytes (1.4 - 6.5 /CUMM) 4.2 Absolute Lymphocytes (1.2 - 3.4 /CUMM) 0.5 L Absolute Monocytes (0.10 - 0.60 /CUMM) 0.2 Absolute Eosinophils (0.0 - 0.7 /CUMM) 0 Absolute Basophils (0.0 - 0.2 /CUMM) 0 Cat scan results show Further increase in size of a large left inguinal hernia with stranding of the fat in the hernia sac. Increased fluid as well in the dependent portion of the sac. No large bowel wall thickening or evidence of obstruction. Decompressed small bowel loops now within the sac which were not present previously. Bladder mass partially visualized and described on the prior study. Partially visualized nodular soft tissue density in the right middle lobe laterally and a groundglass nodular focus in the left lower lobe. Recommend follow-up evaluation with a dedicated CT scan of the chest. Numerous other findings as detailed on the prior examination. Findings discussed with WILBER Pizano at 7:54 PM on 03/18/2018. Billy Minor MD 03/19/18 0133: General Information and HPI History of Present Illness: The patient is an 87-year-old male presents to the emergency room accompanied by his family. He has a 50 year history of increasing size of a left inguinal hernia. The hernia has become scrotal in nature and incompletely reducible at baseline. Over the past 24 hours there is been acute drastic increase in size of the hernia associated with nausea and abdominal pain. He cannot manually reduce it himself as previously noted. Exam & Diagnostic Data Last 24 Hrs of Vital Signs/I&O Vital Signs Date Time Temp Pulse Resp B/P B/P Pulse O2 O2 Flow FiO2 Mean Ox Delivery Rate 03/18 2302 98.6 90 20 152/70 93 Room Air 03/18 2154 97.0 110 20 148/66 97 Room Air 03/18 1950 97.5 60 20 168/90 97 Room Air 03/18 1726 97.6 86 18 180/92 94 Room Air Intake & Output 03/19 0800 03/19 0000 03/18 1600 Intake Total Output Total Balance Patient 135 lb Weight Weight Estimated Measurement Method Assessment/Plan As Ranked By This Provider Problem List: 1. Inguinal hernia of left side with obstruction Admission Lab Results I reviewed the following labs: Laboratory Tests 03/18 03/18 2040 1820 Chemistry Sodium (137 - 145 mmol/L) 140 Potassium (3.5 - 5.1 mmol/L) 4.5 Chloride (98 - 107 mmol/L) 101 Carbon Dioxide (22 - 30 mmol/L) 30 Anion Gap (5 - 16) 10 BUN (9 - 20 mg/dL) 31 H Creatinine (0.7 - 1.2 mg/dL) 1.4 H Estimated GFR (>60 ml/min) 48 L BUN/Creatinine Ratio (7 - 25 %) 22.1 Glucose (65 - 99 mg/dL) 111 H Lactic Acid (0.7 - 2.1 mmol/L) Cancelled 1.0 Calcium (8.4 - 10.2 mg/dL) 9.3 Total Bilirubin (0.2 - 1.3 mg/dL) 1.1 AST (17 - 59 U/L) 16 L ALT (21 - 72 U/L) 23 Alkaline Phosphatase (< 127 U/L) 112 Troponin I (<0.11 ng/ml) 0.02 Total Protein (6.3 - 8.2 g/dL) 6.7 Albumin (3.5 - 5.0 g/dL) 3.4 L Globulin (1.9 - 4.2 gm/dL) 3.3 Albumin/Globulin Ratio (1.1 - 2.2 %) 1.0 L Coagulation PT (9.4 - 12.5 SEC) 12.3 INR (0.90 - 1.17) 1.13 APTT (25 - 37 SEC) 32 Hematology CBC w Diff NO MAN DIFF REQ WBC (4.8 - 10.8 /CUMM) 4.9 RBC (4.70 - 6.10 /CUMM) 3.50 L Hgb (14.0 - 18.0 G/DL) 11.3 L Hct (42 - 52 %) 34.1 L MCV (80.0 - 94.0 FL) 97.5 H MCH (27.0 - 31.0 PG) 32.2 H MCHC (33.0 - 37.0 G/DL) 33.1 RDW (11.5 - 14.5 %) 17.7 H Plt Count (130 - 400 /CUMM) 118 L MPV (7.4 - 10.4 FL) 8.9 Gran % (42.2 - 75.2 %) 85.8 H Lymphocytes % (20.5 - 51.1 %) 9.4 L Monocytes % (1.7 - 9.3 %) 4.5 Eosinophils % (0 - 5 %) 0 Basophils % (0.0 - 2.0 %) 0.3 Absolute Granulocytes (1.4 - 6.5 /CUMM) 4.2 Absolute Lymphocytes (1.2 - 3.4 /CUMM) 0.5 L Absolute Monocytes (0.10 - 0.60 /CUMM) 0.2 Absolute Eosinophils (0.0 - 0.7 /CUMM) 0 Absolute Basophils (0.0 - 0.2 /CUMM) 0 Attending MD Review Statement Attending Statement Attending MD Statement: examined this patient, discuss w/resident/PA/PUMP AND STILL OPERATOR, discussed with family, reviewed images Attending Assessment/Plan: strangluated left scrotal hernia. contents incompletely reduced. recommend emergent repair to prevent gangrene. family and patient agree. high risk with advanced age and comorbidities but risk of observation outweighs perioperative risks. Recommend open repair with mesh.
--- NOTE | 2018-03-19 01:43 | Operative Report ---
Operative/Inv Procedure Report Surgery Date: 03/18/18 Name of Procedure: Open reduction of incarcerated left inguinal hernia into the scrotum. Open repair left inguinal hernia with mesh Pre-Operative Diagnosis: Left inguinal scrotal hernia with obstruction and possible gangrene Post-Operative Diagnosis: Same Estimated Blood Loss: scant Surgeon/Cotton Puller: Billy Minor M.D./Eve MERINO Anesthesia: laryngeal mask airway Implants: Bard patch and plug Operative Indication: 87-year-old male with acute incarceration and possible strangulation of left inguinal hernia presents for emergency repair Operative/Procedure Note Note: After consent is brought to the operative laid supine. Gen. anesthesia was obtained and his abdomen was prepped and draped. The skin overlying the left groin was after local anesthesia and a transverse incision made sharply. We came through subcutaneous tissues with cautery and suture ligated the superficial epigastric vein self-retaining retractors were placed and external oblique fibers were delineated. There were incised sharply along their fibers. Retractors were placed deeper. There was a large incarcerated inguinal hernia. It was circumferentially dissected and [place] drain placed around it. We then dissected the cord structures and identified a large hernia sac. I opened the sac and could identify incarcerated colon that was mildly ischemic but viable. The next portion of the operation took approximately 45 minutes which involved reduction of the hernia from the scrotal contents. This was done circumferentially with blunt and cautery dissection until we could bring the hernia sac up into the wound. We then identified the cord structures and dissected them free from the sac. The contents of the hernia were then reduced manually. This was quite difficult as there was a large amount of bowel through relatively small indirect hole. Eventually got the contents in. A plug of patch was placed in the indirect space to keep the contents reduced and tissues were then sutured laterally to keep it in place. An onlay mesh was then placed it was anchored to the pubic tubercle with 2-0 Prolene and run along the shelving edge of the inguinal ligament. The mesh was sutured superiorly along the arch the transversalis fascia. The tails were tucked around behind the cord and sutured to one another. The wound was irrigated normal saline. The external oblique muscle was then sutured over the mesh with 2-0 Vicryl in a running fashion. The soft tissues and closed in layers of 304 0 Vicryl sutures. Sterile dressings were applied. Sponge and needle counts are correct Findings: indirect Discharge Disposition: Critical Care Unit (first) CC: Jose MURGUIA,Cholo Bonilla; Mariel MURGUIA PHD,Mauricio Tompkins
[2018-03-19 04:55] LABS: ABSOLUTE BASOPHIL COUNT 0 /CUMM (0.0-0.2); ABSOLUTE EOSINOPHIL COUNT 0 /CUMM (0.0-0.7); ABSOLUTE GRANULOCYTE CT 7.8 /CUMM (1.4-6.5); ABSOLUTE LYMPH COUNT 0.4 /CUMM (1.2-3.4); ABSOLUTE MONOCYTE COUNT 0.1 /CUMM (0.10-0.60); BASOPHIL % 0.3 % (0.0-2.0); EOSINOPHIL % 0 % (0-5); GRANULOCYTE % 94.1 % (42.2-75.2); HEMATOCRIT 33.4 % (42-52); MEAN CORPUSCULAR HGB 32.3 PG (27.0-31.0); MEAN CORPUSCULAR VOLUME 97.9 FL (80.0-94.0); MEAN PLATELET VOLUME 9.4 FL (7.4-10.4); PLATELET COUNT 106 /CUMM (130-400); RBC DISTRIBUTION WIDTH 17.5 % (11.5-14.5); RED BLOOD CELL CT 3.42 /CUMM (4.70-6.10)
[2018-03-19 05:00] LABS: WHITE BLOOD CELL COUNT 8.2 /CUMM (4.8-10.8)
[2018-03-19 08:00] VITALS: BP 136/70
--- NOTE | 2018-03-19 08:03 | PN- General Surgery ---
See Addendum Subjective Subjective: Patient reports feeling wonderful this morning. He denies any pain, fever, chills, nausea, vomiting, chest pain or shortness of breath. Denies passing flatus. Per nursing patient voiding this morning, which was very concentrated and has been in afib on the monitor. He reports he is hungry. He offers no complaints. Objective Vital Signs and I&Os Vital Signs Date Time Temp Pulse Resp B/P B/P Pulse O2 O2 Flow FiO2 Mean Ox Delivery Rate 03/19 0300 96 Nasal 2.0L Cannula 03/18 2302 98.6 90 20 152/70 93 Room Air 03/18 2154 97.0 110 20 148/66 97 Room Air 03/18 1950 97.5 60 20 168/90 97 Room Air 03/18 1726 97.6 86 18 180/92 94 Room Air Intake & Output 03/19 0800 03/19 0000 03/18 1600 03/18 0800 03/18 0000 03/17 1600 Intake Total 300 Output Total 300 Balance 0 Intake, IV 300 Intake, Oral 0 Number 0 Bowel Movements Output, Urine 300 Patient 142 lb 135 lb Weight Weight Bed scale Estimated Measurement Method Physical Exam: Gen - resting comfortably in icu in nad, on 2L O2 via nc Cardiac - S1S2 noted, irregular Lungs - CTAB Abd - Soft, nondistended, hypoactive bs, nontender to palpation - left groin with dressing c/d/i, mild surrounding swelling Ext - alps in place, no edema or calf tenderness Current Medications: Current Medications Sig/Jamilah Start time Last Medication Dose Route Stop Time Status Admin Acetaminophen 1,000 MG Q6P PRN 03/19 0205 AC IV Dextrose/Sodium 1,000 ML ONCE ONE 03/19 0205 AC Chloride IV 03/19 1524 Docusate Sodium 100 MG BID 03/19 0900 AC PO Heparin Sodium 5,000 UNIT Q8 03/19 0600 AC 03/19 (Porcine) SC 0659 Lorazepam 0 .STK-MED ONE 03/18 1931 DC .ROUTE Lorazepam 0.5 MG ONCE ONE 03/18 1930 DC IV 03/18 1931 Morphine Sulfate 0 .STK-MED ONE 03/18 1922 DC .ROUTE Morphine Sulfate 2 MG ONCE ONE 03/18 1915 DC 03/18 IV 03/18 Morphine Sulfate 0 .STK-MED ONE 03/18 1836 DC .ROUTE Morphine Sulfate 2 MG ONCE ONE 03/18 1815 DC 03/18 IV 03/18 Senna 374 MG QPM 03/19 2100 AC PO Sodium Chloride 1,000 ML ONCE ONE 03/18 2200 AC 03/18 IV 03/19 Results Last 48 Hours of Labs: Laboratory Tests 03/19 03/18 0245 2040 Chemistry Sodium (137 - 145 mmol/L) 141 Potassium (3.5 - 5.1 mmol/L) 4.9 Chloride (98 - 107 mmol/L) 104 Carbon Dioxide (22 - 30 mmol/L) 27 Anion Gap (5 - 16) 10 BUN (9 - 20 mg/dL) 31 H Creatinine (0.7 - 1.2 mg/dL) 1.4 H Estimated GFR (>60 ml/min) 48 L BUN/Creatinine Ratio (7 - 25 %) 22.1 Glucose (65 - 99 mg/dL) 100 H Lactic Acid Cancelled Calcium (8.4 - 10.2 mg/dL) 8.9 Troponin I (<0.11 ng/ml) 0.03 Hematology CBC w Diff NO MAN DIFF REQ WBC (4.8 - 10.8 /CUMM) 8.2 RBC (4.70 - 6.10 /CUMM) 3.42 L Hgb (14.0 - 18.0 G/DL) 11.0 L Hct (42 - 52 %) 33.4 L MCV (80.0 - 94.0 FL) 97.9 H MCH (27.0 - 31.0 PG) 32.3 H MCHC (33.0 - 37.0 G/DL) 33.0 RDW (11.5 - 14.5 %) 17.5 H Plt Count (130 - 400 /CUMM) 106 L MPV (7.4 - 10.4 FL) 9.4 Gran % (42.2 - 75.2 %) 94.1 H Lymphocytes % (20.5 - 51.1 %) 5.0 L Monocytes % (1.7 - 9.3 %) 0.6 L Eosinophils % (0 - 5 %) 0 Basophils % (0.0 - 2.0 %) 0.3 Absolute Granulocytes (1.4 - 6.5 /CUMM) 7.8 H Absolute Lymphocytes (1.2 - 3.4 /CUMM) 0.4 L Absolute Monocytes (0.10 - 0.60 /CUMM) 0.1 Absolute Eosinophils (0.0 - 0.7 /CUMM) 0 Absolute Basophils (0.0 - 0.2 /CUMM) 0 03/18 1820 Chemistry Sodium (137 - 145 mmol/L) 140 Potassium (3.5 - 5.1 mmol/L) 4.5 Chloride (98 - 107 mmol/L) 101 Carbon Dioxide (22 - 30 mmol/L) 30 Anion Gap (5 - 16) 10 BUN (9 - 20 mg/dL) 31 H Creatinine (0.7 - 1.2 mg/dL) 1.4 H Estimated GFR (>60 ml/min) 48 L BUN/Creatinine Ratio (7 - 25 %) 22.1 Glucose (65 - 99 mg/dL) 111 H Lactic Acid (0.7 - 2.1 mmol/L) 1.0 Calcium (8.4 - 10.2 mg/dL) 9.3 Total Bilirubin (0.2 - 1.3 mg/dL) 1.1 AST (17 - 59 U/L) 16 L ALT (21 - 72 U/L) 23 Alkaline Phosphatase (< 127 U/L) 112 Troponin I (<0.11 ng/ml) 0.02 Total Protein (6.3 - 8.2 g/dL) 6.7 Albumin (3.5 - 5.0 g/dL) 3.4 L Globulin (1.9 - 4.2 gm/dL) 3.3 Albumin/Globulin Ratio (1.1 - 2.2 %) 1.0 L Coagulation PT (9.4 - 12.5 SEC) 12.3 INR (0.90 - 1.17) 1.13 APTT (25 - 37 SEC) 32 Hematology CBC w Diff NO MAN DIFF REQ WBC (4.8 - 10.8 /CUMM) 4.9 RBC (4.70 - 6.10 /CUMM) 3.50 L Hgb (14.0 - 18.0 G/DL) 11.3 L Hct (42 - 52 %) 34.1 L MCV (80.0 - 94.0 FL) 97.5 H MCH (27.0 - 31.0 PG) 32.2 H MCHC (33.0 - 37.0 G/DL) 33.1 RDW (11.5 - 14.5 %) 17.7 H Plt Count (130 - 400 /CUMM) 118 L MPV (7.4 - 10.4 FL) 8.9 Gran % (42.2 - 75.2 %) 85.8 H Lymphocytes % (20.5 - 51.1 %) 9.4 L Monocytes % (1.7 - 9.3 %) 4.5 Eosinophils % (0 - 5 %) 0 Basophils % (0.0 - 2.0 %) 0.3 Absolute Granulocytes (1.4 - 6.5 /CUMM) 4.2 Absolute Lymphocytes (1.2 - 3.4 /CUMM) 0.5 L Absolute Monocytes (0.10 - 0.60 /CUMM) 0.2 Absolute Eosinophils (0.0 - 0.7 /CUMM) 0 Absolute Basophils (0.0 - 0.2 /CUMM) 0 Assessment/Plan Assessment/Plan 87 M with a hx of chf, htn, cva, hld, copd and afib who presented with a left incarcerated inguinal scrotal hernia s/p left inguinal hernia repair with mesh. He remains in afib and cardiac troponins have been negative Advance to liquids Continue IVF for YOLANDA due to dehydration Continue pain regimen Resume home meds GI/DVT ppx on board PT eval, uses RW as baseline Consult cardiology, Dr. Floyd Will d/w Dr. Minor Core Measures Venous Thromboembolism VTE Risk Factors Surgery No Mechanical VTE Prophylaxis d/t N/A MechProphylax Ordered No VTE Pharm Prophylaxis d/t NA PharmProphylax ordered
--- NOTE | 2018-03-19 13:53 | Cons- Cardiology ---
General Information and HPI Consulting Request Date of Consult: 03/19/18 Requested By: Iván MURGUIA,Billy Garcia History of Present Illness: Mr. Perez is an 87 year old male with history of hypertension, dyslipidemia, CHF and CVA. He also carries a history of bladder cancer and anemia. I initially saw this patient when he was brought to the ER for evaluation of lethargy, anorexia and leg swelling. He was found to be in atrial fibrillation at that time. Although transiently on Eliquis for stroke prophylaxis this medication needed to be stopped due to bleeding. The patient now presents with discomfort related to a left inguinal hernia which underwent surgical repair yesterday. He now feels well without chest discomfort or palpitations. He is comfortable with his breathing at rest but mild activity will get him winded. He also has episodes of lightheadedness or a regular basis. The patient has no awareness of his atrial fibrillation. Unfortunately, this patient continues to have issues with bleeding. The bleeding is noted even with aspirin or ibuprofen. It should be noted that this patient refused a cystoscopy and TURP a few days ago when last admitted. Allergies/Medications Allergies: Coded Allergies: No Known Allergies (03/03/18) Home Med List: Albuterol Sulfate (Ventolin Hfa) 90 MCG HFA.AER.AD 2 PUF INH Q4-6 PRN PRN SHORTNESS OF BREATH (Reported) Allopurinol 300 MG TABLET 1 TAB PO DAILY GOUT (Reported) Apixaban (Eliquis) 2.5 MG TABLET 1 TAB PO BID Blood thinner Ascorbic Acid (Vitamin C) 500 MG TABLET 1 TAB PO DAILY VITAMIN SUPPORT ( Reported) Atorvastatin Calcium 10 MG TABLET 1 TAB PO QPM CHOLESTEROL (Reported) Cholecalciferol (Vitamin D3) (Vitamin D) 1,000 UNIT TABLET 1 TAB PO DAILY VITAMIN SUPPORT (Reported) Cyanocobalamin (Vitamin B-12) 1,000 MCG TABLET 1 TAB PO DAILY VITAMIN SUPPORT (Reported) Ferrous Sulfate 325 MG (65 MG IRON) TABLET 1 TAB PO QPM VITAMIN SUPPORT ( Reported) Fluticasone/Salmeterol (Advair 500-50 Diskus) 500 MCG-50 MCG/DOSE BLST.W.DEV 1 PUF INH BID BREATHING PROBLEMS (Reported) Furosemide 20 MG TABLET 1 TAB PO DAILY WATER RETENTION (Reported) Metoprolol Succinate 50 MG TAB.ER.24H 1 TAB PO QPM HEART (Reported) Multivit-Min/FA/Lycopen/Lutein (Centrum Silver Tablet) 0.4 MG-300 MCG-250 MCG TABLET 1 TAB PO DAILY VITAMIN SUPPORT (Reported) Terazosin HCl 5 MG CAPSULE 1 CAP PO QPM SLEEP (Reported) Umeclidinium [place] (Incruse Ellipta) 62.5 MCG/ACTUATION BLST.W.DEV 1 INH PO DAILY BREATHING PROBLEMS (Reported) Vitamin E (Dl,Tocopheryl Acet) (Vitamin E) 400 UNIT CAPSULE 1 CAP PO DAILY VITAMIN SUPPORT (Reported) Review of Systems Review of Systems: A review of systems is unremarkable. 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 Home Smoking Status: Former Smoker Exam & Diagnostic Data Vital Signs and I&O Vital Signs Date Time Temp Pulse Resp B/P B/P Pulse O2 O2 Flow FiO2 Mean Ox Delivery Rate 03/19 1021 Nasal 1.0L Cannula 03/19 0800 98 Nasal 2.0L Cannula 03/19 0800 99.1 82 18 136/70 97 Nasal 2.0L Cannula 03/19 0300 96 Nasal 2.0L Cannula 03/18 2302 98.6 90 20 152/70 93 Room Air 03/18 2154 97.0 110 20 148/66 97 Room Air 03/18 1950 97.5 60 20 168/90 97 Room Air 03/18 1726 97.6 86 18 180/92 94 Room Air Intake & Output 03/19 1600 03/19 0800 03/19 0000 03/18 1600 03/18 0800 03/18 0000 Intake Total 300 Output Total 300 Balance 0 Intake, IV 300 Intake, Oral 0 Number 0 Bowel Movements Output, Urine 300 Patient 142 lb 135 lb Weight Weight Bed scale Estimated Measurement Method Physical Exam: General: WD/WN male in NAD; alert and oriented x 3 HEENT: NC/AT, pERRL, EOMI Neck: no JVD, no carotid bruit Heart: irregularly irregular Lungs: clear bilaterally Abdomen: soft, NT, +ve bowel sounds with bandage in LLQ Extremities: no leg edema Assessment/Plan Assessment/Plan * This patient has chronic atrial fibrillation. It is of unknown duration but has clearly been oliva on for at least three weeks. Ideally this patient should be anticoagulated either in anticipation of cardioversion or indefinitely while in atrial fibrillation but hematuria has prevented this. The patient was not ageeable to any bladder interventions that may, even temporarily, help this problem. For now we need to avoid chronic anticoagulation and the family and patient understand the risks. His H/H is stable. Obtain a urology consult to assess if the hematuria is likely to be of a significant degree to warrant avoidance of anticoagulation. I would use an aspirin at 81mg daily but it should be noted that aspirin has not been shown to reduce the risk of stroke in atrial fibrillation. Continue Metoprolol. Consult Acknowledgment - Thank you for your consult request.
[2018-03-19 16:00] VITALS: BP 102/60
--- NOTE | 2018-03-19 18:57 | Cons- Urology ---
General Information and HPI Consulting Request Date of Consult: 03/19/18 Requested By: Iván MURGUIA,Billy Garcia Reason for Consult: bladder mass: hematuria Source of Information: patient, old records Exam Limitations: no limitations History of Present Illness: 87 yr old seen a few weeks ago with hematuria and bladder mass on CT. Refused any intervention at that time. Presents again to [place] for open henia repair, with cardiac hx. Anti-coagulation advised for cardiac purposes-however, pt may have significant hematuria with blood loss anemia if hemorrhage from bladder mass becomes signficiant. Allergies/Medications Allergies: Coded Allergies: No Known Allergies (03/03/18) Home Med List: Albuterol Sulfate (Ventolin Hfa) 90 MCG HFA.AER.AD 2 PUF INH Q4-6 PRN PRN SHORTNESS OF BREATH (Reported) Allopurinol 300 MG TABLET 1 TAB PO DAILY GOUT (Reported) Apixaban (Eliquis) 2.5 MG TABLET 1 TAB PO BID Blood thinner Ascorbic Acid (Vitamin C) 500 MG TABLET 1 TAB PO DAILY VITAMIN SUPPORT ( Reported) Atorvastatin Calcium 10 MG TABLET 1 TAB PO QPM CHOLESTEROL (Reported) Cholecalciferol (Vitamin D3) (Vitamin D) 1,000 UNIT TABLET 1 TAB PO DAILY VITAMIN SUPPORT (Reported) Cyanocobalamin (Vitamin B-12) 1,000 MCG TABLET 1 TAB PO DAILY VITAMIN SUPPORT (Reported) Ferrous Sulfate 325 MG (65 MG IRON) TABLET 1 TAB PO QPM VITAMIN SUPPORT ( Reported) Fluticasone/Salmeterol (Advair 500-50 Diskus) 500 MCG-50 MCG/DOSE BLST.W.DEV 1 PUF INH BID BREATHING PROBLEMS (Reported) Furosemide 20 MG TABLET 1 TAB PO DAILY WATER RETENTION (Reported) Metoprolol Succinate 50 MG TAB.ER.24H 1 TAB PO QPM HEART (Reported) Multivit-Min/FA/Lycopen/Lutein (Centrum Silver Tablet) 0.4 MG-300 MCG-250 MCG TABLET 1 TAB PO DAILY VITAMIN SUPPORT (Reported) Terazosin HCl 5 MG CAPSULE 1 CAP PO QPM SLEEP (Reported) Umeclidinium [place] (Incruse Ellipta) 62.5 MCG/ACTUATION BLST.W.DEV 1 INH PO DAILY BREATHING PROBLEMS (Reported) Vitamin E (Dl,Tocopheryl Acet) (Vitamin E) 400 UNIT CAPSULE 1 CAP PO DAILY VITAMIN SUPPORT (Reported) Current Medications: Current Medications Sig/Jamilah Start time Last Medication Dose Route Stop Time Status Admin Acetaminophen 1,000 MG Q6P PRN 03/19 0205 DC IV Albuterol Sulfate 2 PUF Q4 03/19 1000 AC 03/19 INH 1720 Allopurinol 300 MG DAILY 03/19 0900 AC 03/19 PO 1025 Aspirin Buffered 81 MG DAILY 03/19 1452 DC PO Atorvastatin Calcium 10 MG 1700 03/19 1700 AC 03/19 PO 1720 Budesonide/ 2 PUF BID 03/19 0900 AC 03/19 Formoterol Fumarate INH 1239 Dextrose/Sodium 1,000 ML Q20H 03/19 0815 AC 03/19 Chloride IV 0839 Dextrose/Sodium 1,000 ML ONCE ONE 03/19 0205 DC Chloride IV 03/19 1524 Docusate Sodium 100 MG BID 03/19 0900 AC 03/19 PO 1024 Furosemide 20 MG DAILY 03/19 0900 AC 03/19 PO 1025 Heparin Sodium 5,000 UNIT Q8 03/19 0600 DC 03/19 (Porcine) SC 0659 Lorazepam 0 .STK-MED ONE 03/18 193 DC .ROUTE Lorazepam 0.5 MG ONCE ONE 03/18 1930 DC IV 03/18 193 Metoprolol Succinate 50 MG QPM 03/19 2100 AC PO Morphine Sulfate 2 MG Q3P PRN 03/19 0815 AC IV Morphine Sulfate 0 .STK-MED ONE 03/18 192 DC .ROUTE Morphine Sulfate 2 MG ONCE ONE 03/18 191 DC 03/18 IV 03/18 191 1928 Omeprazole 20 MG DAILY AC 03/19 0808 AC 03/19 PO 0839 Oxycodone/ 1 TAB Q4P PRN 03/19 0815 AC Acetaminophen PO Oxycodone/ 2 TAB Q4P PRN 03/19 0815 AC Acetaminophen PO Senna 374 MG QPM 03/19 2100 AC PO Sodium Chloride 1,000 ML ONCE ONE 03/18 2200 DC 03/18 IV 03/19 175 2215 Past History Medical History Blood Transfusion Hx: No Neurological: NONE EENT: NONE Cardiovascular: CHF, hypertension, hyperlipidemia Respiratory: COPD Gastrointestinal: NONE Hepatic: NONE Renal: NONE Musculoskeletal: gout Psychiatric: NONE Endocrine: NONE Blood Disorders: NONE Cancer(s): NONE 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 Home Smoking Status: Former Smoker Employment History Retired? yes Review of Systems Review of Systems Constitutional: Reports: malaise. EENTM: Denies: no symptoms. Cardiovascular: Reports: edema. Respiratory: Denies: no symptoms. GI: Reports: abdominal pain. Genitourinary: Reports: hematuria. Musculoskeletal: Reports: muscle stiffness. Exam & Diagnostic Data Vital Signs and I&O Vital Signs Date Time Temp Pulse Resp B/P B/P Pulse O2 O2 Flow FiO2 Mean Ox Delivery Rate 03/19 1021 Nasal 1.0L Cannula 03/19 08 98 Nasal 2.0L Cannula 03/19 08 99.1 82 18 136/70 97 Nasal 2.0L Cannula 03/19 0300 96 Nasal 2.0L Cannula 03/18 2302 98.6 90 20 152/70 93 Room Air 03/18 2154 97.0 110 20 148/66 97 Room Air 03/18 1950 97.5 60 20 168/90 97 Room Air Intake & Output 03/19 1600 03/19 0800 03/19 0000 03/18 1600 03/18 0800 03/18 0000 Intake Total 1000 300 Output Total 200 300 Balance 800 0 Intake, IV 400 300 Intake, Oral 600 0 Number 0 0 Bowel Movements Output, Urine 200 300 Patient 142 lb 135 lb Weight Weight Bed scale Estimated Measurement Method Last 24 Hours of Labs: Laboratory Tests 03/19 03/19 03/18 1340 0245 2040 Chemistry Sodium (137 - 145 mmol/L) 141 Potassium (3.5 - 5.1 mmol/L) 4.9 Chloride (98 - 107 mmol/L) 104 Carbon Dioxide (22 - 30 mmol/L) 27 Anion Gap (5 - 16) 10 BUN (9 - 20 mg/dL) 31 H Creatinine (0.7 - 1.2 mg/dL) 1.4 H Estimated GFR (>60 ml/min) 48 L BUN/Creatinine Ratio (7 - 25 %) 22.1 Glucose (65 - 99 mg/dL) 100 H Lactic Acid Cancelled Calcium (8.4 - 10.2 mg/dL) 8.9 Troponin I (<0.11 ng/ml) 0.01 0.03 Hematology CBC w Diff NO MAN DIFF REQ WBC (4.8 - 10.8 /CUMM) 8.2 RBC (4.70 - 6.10 /CUMM) 3.42 L Hgb (14.0 - 18.0 G/DL) 11.0 L Hct (42 - 52 %) 33.4 L MCV (80.0 - 94.0 FL) 97.9 H MCH (27.0 - 31.0 PG) 32.3 H MCHC (33.0 - 37.0 G/DL) 33.0 RDW (11.5 - 14.5 %) 17.5 H Plt Count (130 - 400 /CUMM) 106 L MPV (7.4 - 10.4 FL) 9.4 Gran % (42.2 - 75.2 %) 94.1 H Lymphocytes % (20.5 - 51.1 %) 5.0 L Monocytes % (1.7 - 9.3 %) 0.6 L Eosinophils % (0 - 5 %) 0 Basophils % (0.0 - 2.0 %) 0.3 Absolute Granulocytes (1.4 - 6.5 /CUMM) 7.8 H Absolute Lymphocytes (1.2 - 3.4 /CUMM) 0.4 L Absolute Monocytes (0.10 - 0.60 /CUMM) 0.1 Absolute Eosinophils (0.0 - 0.7 /CUMM) 0 Absolute Basophils (0.0 - 0.2 /CUMM) 0 Imaging Results: PATIENT: ARBEN MAYO PRESENT AGE: 87 PATIENT ACCOUNT NO: [id number] : [birth year] LOCATION: [facility] ORDERING PHYSICIAN: Jero MERINO SERVICE DATE: 03/18/18 EXAM TYPE: CAT - CT ABD & PELVIS W IV CONTRAST EXAMINATION: CT ABDOMEN AND PELVIS WITH CONTRAST CLINICAL INFORMATION: Lower abdominal pain and large hernia. COMPARISON: CT from 03/05/2018. TECHNIQUE: Multidetector volumetric imaging was performed of the abdomen and pelvis following IV administration of 95 mL of Optiray 320 contrast. Sagittal and coronal reformatted images were obtained on the technologist's workstation. DLP: 460.73 mGy-cm FINDINGS: The large left inguinal hernia has increased in size and now contains multiple loops of small bowel which are decompressed. There is also increased fluid in the dependent portion of the hernia sac as compared to the previous examination. Colonic loops of bowel are present within the hernia, as noted on prior imaging without wall thickening or inflammatory change. The mesenteric fat within the hernia is hazier in appearance as compared to the previous examination. There is no evidence of a bowel obstruction proximal to the hernia. Elevation of the right hemidiaphragm again noted with a right-sided basilar pleural effusion. A rounded area of consolidation is partially visualized in a subpleural distribution laterally in the right middle lobe. Emphysematous changes are present. A small 9 mm groundglass nodular focus in the left lower lobe posteriorly is without change. Both atria of the heart are dilated, left greater than right side. 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 No biliary ductal dilatation is seen. There is a small 9 mm gallstone dependently within the gallbladder, also visible on prior imaging. Renal cysts are present without hydronephrosis. The pancreas, spleen, adrenal glands appear normal. A soft tissue mass is again visible at the bladder base, though difficult to evaluate due to partial decompression. The prostate gland is enlarged. No new adenopathy is seen. There is significant atherosclerotic wall calcification of the vasculature. 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 Colonic diverticulosis present without evidence of diverticulitis. Extensive lumbar spondylosis again noted with chronic compression fracture deformities. There are questionable pagetoid changes in the T11 and T12 vertebrae, incompletely visualized. Compression fracture at L2 is unchanged in appearance. Extensive facet arthrosis again visible. IMPRESSION: Further increase in size of a large left inguinal hernia with stranding of the fat in the hernia sac. Increased fluid as well in the dependent portion of the sac. No large bowel wall thickening or evidence of obstruction. Decompressed small bowel loops now within the sac which were not present previously. Bladder mass partially visualized and described on the prior study. Partially visualized nodular soft tissue density in the right middle lobe laterally and a groundglass nodular focus in the left lower lobe. Recommend follow-up evaluation with a dedicated CT scan of the chest. Numerous other findings as detailed on the prior examination. Findings discussed with WILBER Pizano at 7:54 PM on 03/18/2018. Assessment/Plan Assessment/Plan bladder mass suspicious for bladder cancer: plan is anti-coagulation to proceed with short term meds vs long-term (ie coumadin). Monitor urine output and if grossly bloody with drop in H/H to stop anti-coagulation, and then pt has to decide on whether to proceed with TURBT-if he decides NO Turbt, then at that time pt. told that anti-coagulation will likely cause significant hemorrhage and must be stopped despite cardiac risks. Copies To: Korey Luciano MD Consult Acknowledgment - Thank you for your consult request. 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 Monitor urine output and if grossly bloody with drop in H/H to stop anti-coagulation, and then pt has to decide on whether to proceed with TURBT-if he decides NO Turbt, then at that time pt. told that anti-coagulation will likely cause significant hemorrhage and must be stopped despite cardiac risks. Pt states that he would rather NOT proceed with bladder tumor scraping as it is large and may require multiple surgeries. He wishes to discuss this with his once again when she returns for a visit.
[2018-03-20] VITALS: BP 112/60
[2018-03-20 05:55] LABS: ABSOLUTE BASOPHIL COUNT 0 /CUMM (0.0-0.2); ABSOLUTE EOSINOPHIL COUNT 0 /CUMM (0.0-0.7); ABSOLUTE GRANULOCYTE CT 7.3 /CUMM (1.4-6.5); ABSOLUTE LYMPH COUNT 0.6 /CUMM (1.2-3.4); ABSOLUTE MONOCYTE COUNT 0.5 /CUMM (0.10-0.60); BASOPHIL % 0.1 % (0.0-2.0); EOSINOPHIL % 0 % (0-5); GRANULOCYTE % 86.6 % (42.2-75.2); HEMATOCRIT 28.8 % (42-52); MEAN CORPUSCULAR HGB 32.4 PG (27.0-31.0); MEAN CORPUSCULAR VOLUME 98.1 FL (80.0-94.0); MEAN PLATELET VOLUME 9.9 FL (7.4-10.4); PLATELET COUNT 104 /CUMM (130-400); RBC DISTRIBUTION WIDTH 17.4 % (11.5-14.5); RED BLOOD CELL CT 2.94 /CUMM (4.70-6.10); WHITE BLOOD CELL COUNT 8.5 /CUMM (4.8-10.8)
--- NOTE | 2018-03-20 06:47 | PN- General Surgery ---
See Addendum Subjective Subjective: 87 y/o male POD2 S/P left inguinal hernia repair. sleeping easily arousable. feels comfortable and answers questions. No BM yet but has bowel sounds and is passing gas. Objective Vital Signs and I&Os Vital Signs Date Time Temp Pulse Resp B/P B/P Pulse O2 O2 Flow FiO2 Mean Ox Delivery Rate 03/20 0000 96 Nasal 3.0L Cannula 03/20 0000 97.7 65 24 112/60 96 Nasal 3.0L Cannula 03/19 2054 97.6 70 19 102/59 03/19 1600 92 Nasal 1.0L Cannula 03/19 1600 97.6 67 30 102/60 92 Nasal 1.0L Cannula 03/19 1021 Nasal 1.0L Cannula 03/19 0800 98 Nasal 2.0L Cannula 03/19 0800 99.1 82 18 136/70 97 Nasal 2.0L Cannula Intake & Output 03/20 0800 03/20 0000 03/19 1600 03/19 0800 03/19 0000 03/18 1600 Intake Total 400 1000 300 Output Total 200 200 300 Balance 200 800 0 Intake, IV 400 400 300 Intake, Oral 600 0 Number 0 0 Bowel Movements Output, Urine 200 200 300 Patient 142 lb 135 lb Weight Weight Bed scale Estimated Measurement Method A+O pain controlled chest - CTA symmtric heart- rate 90. irregular abdomen- dressings dry. no abdominal tenderness pos bowel sounds bilateral lower ext - alps in place, calves nontender Assessment/Plan Assessment/Plan S/P left inguinal hernia repair Patient has history of bladder tumor and hematuria was see by Dr. Luciano. Patient does not want to proceed with any urologic procedures at this time. He may resume ASA at home and HSQ inpatient, advance diet/ OOB withassistance for ambulation consider discharge to rehab for short stay. Admission Lab Results I reviewed the following labs: Laboratory Tests 03/20 03/19 0530 1340 Chemistry Sodium (137 - 145 mmol/L) 136 L Potassium (3.5 - 5.1 mmol/L) 4.5 Chloride (98 - 107 mmol/L) 101 Carbon Dioxide (22 - 30 mmol/L) 30 Anion Gap (5 - 16) 5 BUN (9 - 20 mg/dL) 34 H Creatinine (0.7 - 1.2 mg/dL) 1.4 H Estimated GFR (>60 ml/min) 48 L BUN/Creatinine Ratio (7 - 25 %) 24.3 Troponin I (<0.11 ng/ml) 0.01 Hematology CBC w Diff MAN DIFF ORDERED WBC (4.8 - 10.8 /CUMM) 8.5 RBC (4.70 - 6.10 /CUMM) 2.94 L Hgb (14.0 - 18.0 G/DL) 9.5 L Hct (42 - 52 %) 28.8 L MCV (80.0 - 94.0 FL) 98.1 H MCH (27.0 - 31.0 PG) 32.4 H MCHC (33.0 - 37.0 G/DL) 33.0 RDW (11.5 - 14.5 %) 17.4 H Plt Count (130 - 400 /CUMM) 104 L MPV (7.4 - 10.4 FL) 9.9 Gran % (42.2 - 75.2 %) 86.6 H Lymphocytes % (20.5 - 51.1 %) 6.9 L Monocytes % (1.7 - 9.3 %) 6.4 Eosinophils % (0 - 5 %) 0 Basophils % (0.0 - 2.0 %) 0.1 Absolute Granulocytes (1.4 - 6.5 /CUMM) 7.3 H Segmented Neutrophils (42.2 - 75.2 %) 76 H Band Neutrophils (0.0 - 5.0 %) 3 Absolute Lymphocytes (1.2 - 3.4 /CUMM) 0.6 L Lymphocytes (20.5 - 51.1 %) 15 L Monocytes (1.7 - 9.3 %) 6 Absolute Monocytes (0.10 - 0.60 /CUMM) 0.5 Absolute Eosinophils (0.0 - 0.7 /CUMM) 0 Absolute Basophils (0.0 - 0.2 /CUMM) 0 Platelet Estimate (ADEQUATE) DECREASED Anisocytosis 1+ Elliptocytes 1+ Core Measures Venous Thromboembolism VTE Risk Factors Surgery No Mechanical VTE Prophylaxis d/t N/A MechProphylax Ordered No VTE Pharm Prophylaxis d/t NA PharmProphylax ordered
[2018-03-20 08:00] VITALS: BP 130/70
--- NOTE | 2018-03-20 15:02 | RADIOLOGY REPORT ---
EXAMINATION: XR ABDOMEN MULTIPLE VIEWS CLINICAL INDICATION: Abdominal distention COMPARISON: CT 03/18/2018 TECHNIQUE: 2 views of the abdomen. FINDINGS: There is no evidence of free air or obstruction. No abnormal calcifications are seen IMPRESSION: Unremarkable bowel gas pattern.
[2018-03-20 16:00] VITALS: BP 120/62
--- NOTE | 2018-03-20 17:31 | Patient Discharge Instructions ---
Discharge Instructions General Discharge Information You were seen/treated for: Incarcerated left inguinal hernia You had these procedures: 1. Open reduction of incarcerated left inguinal hernia into the scrotum. 2. Open repair left inguinal hernia with mesh Watch for these problems: Increased pain, nausea, vomiting, redness, swelling or drainage from your incision Do not soak the wound: Yes No bath, but you may shower: Yes Other wound care: Keep incision clean an dry, change dressing daily as needed, no ointments Diet Continue normal diet: Yes Recommended Diet: Heart Healthy Activity Full Activity/No Limits: No Activity Self Limited: Yes Pounds, do NOT lift more than: 10 (x 4 weeks) Activity Limited to: Weight bear as tolerated Other activity limits: Use assisted device as needed Acute Coronary Syndrome Inclusion Criteria At DC or during hospital stay patient has or had the following: ACS DIAGNOSIS No Discharge Core Measures Meds if any: Prescribed or Continued at Discharge Meds if any: NOT Prescribed or Continued at Discharge Congestive Heart Failure Inclusion Criteria At DC or during hospital stay patient has or had the following: CHF DIAGNOSIS No Discharge Core Measures Meds if any: Prescribed or Continued at Discharge Meds if any: NOT Prescribed or Continued at Discharge Cerebrovascular accident Inclusion Criteria At DC or during hospital stay patient has or had the following: CVA/TIA Diagnosis No Discharge Core Measures Meds if any: Prescribed or Continued at Discharge Meds if any: NOT Prescribed or Continued at Discharge Venous thromboembolism Inclusion Criteria VTE Diagnosis No VTE Type NONE VTE Confirmed by (Test) NONE Discharge Core Measures - Per Current guidelines, there needs to be overlap - treatment for the first 5 days of Warfarin therapy. - If discharged on Warfarin prior to 5 days of - overlap therapy, the patient will need to be - assessed for post discharge needs including - *Post discharge parental anticoagulation - *Warfarin and/or parental anticoagulation education - *Follow up date to check INR post discharge At least 5 days overlap therapy as Inpatient No Meds if any: Prescribed or Continued at Discharge Note: Overlap Therapy is Warfarin and Anticoagulant Meds if any: NOT Prescribed or Continued at Discharge
[2018-03-20] MEDS ORDERED: ASPIRIN EC81 M1 PO (17:33)
--- NOTE | 2018-03-20 20:33 | PN- Cardiology ---
Subjective Subjective: * No specific complaints although patient is not completely coherent of thought at this time. He has refuse urologic surgery. * atrial fibrillation Objective Vital Signs and I&Os Vital Signs Date Time Temp Pulse Resp B/P B/P Pulse O2 O2 Flow FiO2 Mean Ox Delivery Rate 03/20 1706 Nasal 3.0L Cannula 03/20 1600 95 Nasal 1.0L Cannula 03/20 1600 98.7 66 20 120/62 95 Nasal 1.0L Cannula 03/20 0800 97.8 72 20 130/70 100 Nasal 3.0L Cannula 03/20 0000 96 Nasal 3.0L Cannula 03/20 0000 97.7 65 24 112/60 96 Nasal 3.0L Cannula 03/194 97.6 70 19 102/59 Intake & Output 03/20 1600 03/20 0800 03/20 0000 03/19 1600 03/19 0800 03/19 0000 Intake Total 1040 240 384 4850 300 Output Total 500 400 200 200 300 Balance 540 100 200 800 0 Intake, IV 400 400 400 400 300 Intake, Oral 640 100 600 0 Number 0 0 Bowel Movements Output, Urine 500 400 200 200 300 Patient 141 lb 142 lb 135 lb Weight Weight Bed scale Estimated Measurement Method Physical Exam: General: WD/WN male in NAD; alert and oriented x 3 HEENT: NC/AT, pERRL, EOMI Neck: no JVD, no carotid bruit Heart: irregularly irregular Lungs: clear bilaterally Abdomen: soft, NT, +ve bowel sounds with bandage in LLQ Extremities: no leg edema Assessment/Plan Assessment/Plan * This patient has chronic atrial fibrillation. He has a decreasing H/H and Dr. Luciano of urology feels that, without surgical intervention, this bleeding is of a significant amount and not likely to resolve on its own. As such, chronic anticoagulation will not be tolerated. An aspirin at 81mg daily is reasonable although there is no evidence that it will present stroke in the setting of atrial fibrillation. Continue Metoprolol. Continue telemetry? No
[2018-03-20 22:22] VITALS: BP 132/68
[2018-03-21 07:30] VITALS: BP 132/60
[2018-03-21 07:45] LABS: ABSOLUTE BASOPHIL COUNT 0 /CUMM (0.0-0.2); ABSOLUTE EOSINOPHIL COUNT 0 /CUMM (0.0-0.7); ABSOLUTE GRANULOCYTE CT 5.1 /CUMM (1.4-6.5); ABSOLUTE LYMPH COUNT 0.8 /CUMM (1.2-3.4); ABSOLUTE MONOCYTE COUNT 0.4 /CUMM (0.10-0.60); BASOPHIL % 0.2 % (0.0-2.0); EOSINOPHIL % 0 % (0-5); GRANULOCYTE % 80.6 % (42.2-75.2); HEMATOCRIT 30.1 % (42-52); MEAN CORPUSCULAR HGB 32.7 PG (27.0-31.0); MEAN CORPUSCULAR HGB CONC 33.2 G/DL (33.0-37.0); MEAN CORPUSCULAR VOLUME 98.3 FL (80.0-94.0); MEAN PLATELET VOLUME 10.1 FL (7.4-10.4); PLATELET COUNT 102 /CUMM (130-400); RBC DISTRIBUTION WIDTH 17.7 % (11.5-14.5); RED BLOOD CELL CT 3.07 /CUMM (4.70-6.10); WHITE BLOOD CELL COUNT 6.4 /CUMM (4.8-10.8)
--- NOTE | 2018-03-21 12:06 | PN- General Surgery ---
See Addendum Subjective Subjective: Reports large bowel movement overnight. Denies abdominal discomfort. Denies nausea and vomitting. Has been voiding without pain. Has been oob to chair, requires assistance but overall strength improving. Objective Vital Signs and I&Os Vital Signs Date Time Temp Pulse Resp B/P B/P Pulse O2 O2 Flow FiO2 Mean Ox Delivery Rate 03/21 1114 Nasal 3.0L Cannula 03/21 0800 Nasal 1.0L Cannula 03/21 0730 97.3 85 18 132/60 96 Nasal Cannula 03/20 2222 97.7 65 19 132/68 93 03/20 2149 63 20 97/62 03/20 1706 Nasal 3.0L Cannula 03/20 1600 95 Nasal 1.0L Cannula 03/20 1600 98.7 66 20 120/62 95 Nasal 1.0L Cannula Intake & Output 03/21 1600 03/21 0800 03/21 0000 03/20 1600 03/20 0800 03/20 0000 Intake Total 560 1040 500 400 Output Total 200 325 401 500 400 200 Balance -200 -325 159 540 100 200 Intake, IV 400 400 400 Intake, Oral 560 640 100 Output, Stool 1 Output, Urine 200 325 400 500 400 200 Patient 133 lb 141 lb Weight Physical Exam: General: Alert and oriented x3, no acute distress Cardiac: irregularly irregular Pulm: non-labored respiratory effort, on nc o2, cta bilaterally Abd: non-tender, non-distended, +bs, dressing dry and intact Extremities: Neurovascular status grossly intact, bilateral calves soft and non- tender Assessment/Plan Assessment/Plan This is an 87 year old male, POD 2 s/p repair incarcerated L [facility] Hospital stay complicated by gross hematura. Evaluated by urology. Urologist feels that bleeding will not resolve spontaneously. Pt, however, refuses surgical intervention. Cardiology has evaluated pt, pt is in chronic atrial fibrillation. Due to hematuria, anticoagulation will not be tolerated. ASA 81 mg daily has been recommended although risk is known that a stroke can still present in the setting of atrial fibrillation. Cardiology has recommended to continue metoprolol -Continue diet as tolerated -Appreciate cardiology and urology recommendations -Discharge to [facility] until cleared by facility for home -Daily dressing changes -Follow up with Dr. Minor in one to two weeks Core Measures Venous Thromboembolism VTE Risk Factors Surgery No Mechanical VTE Prophylaxis d/t N/A MechProphylax Ordered No VTE Pharm Prophylaxis d/t NA PharmProphylax ordered
[2018-03-21 12:15] VITALS: BP 132/60
[2018-03-21 14:19] VITALS: BP 110/52
--- NOTE | 2018-03-21 16:29 | Surgical Discharge Summary ---
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 Home Who Do You Live With? Spouse What is Your Primary Language? Egyptian Review of Systems: see h&p Hospital Course Course Attending Physician: Billy Minor MD Primary Care Physician: Cholo Garcia MD Hospital Course: Admitted to hospital with complaints of abdominal pain. Noted to have incarcerated left inguinal hernia. Taken to OR, succesfully reduced. Post operative diet advanced and tolerated. Bowel movement. Gross hematuria evaluated by urology. Pt refused urologic intervention. cardiology consulted for afib, hx. Vital signs stable and within normal limits. Pt evaluated and treated. Patient deemed appropriate for discharge to [facility]. Allergies: Coded Allergies: No Known Allergies (03/03/18) Disposition Summary Disposition Principal Diagnosis: Incarcerated left inquinal hernia Additional Diagnosis: none Discharge Disposition: SNF Discharge Instructions General Discharge Information Code Status: Full Code Patient's Diet: Heart healthy, advance as tolerated Patient's Activity: as tolerated Follow-Up Instructions/Appts: Follow up with Dr. Minor in 2 weeks from date of surgery Medications at Discharge Discharge Medications: Stop taking the following medications: Apixaban (Eliquis) 2.5 MG TABLET ORAL TWICE DAILY Qty = 60 Continue taking these medications: Allopurinol (Allopurinol) 300 MG TABLET 1 Tablet ORAL DAILY Qty = 90 Comments: Last Taken:03/21/18 Time:816 Furosemide (Furosemide) 20 MG TABLET 1 Tablet ORAL DAILY Qty = 30 Comments: Last Taken:03/21/18 Time:816 Multivit-Min/FA/Lycopen/Lutein (Centrum Silver Tablet) 0.4 MG-300 MCG-250 MCG TABLET 1 Tablet ORAL DAILY Comments: NOT GIVEN IN HOSPITAL Ascorbic Acid (Vitamin C) 500 MG TABLET 1 Tablet ORAL DAILY Comments: NOT GIVEN THIS ADMISSION Vitamin E (Dl,Tocopheryl Acet) (Vitamin E) 400 UNIT CAPSULE 1 Capsule ORAL DAILY Comments: NOT GIVEN THIS ADMISSION Cholecalciferol (Vitamin D3) (Vitamin D) 1,000 UNIT TABLET 1 Tablet ORAL DAILY Comments: NOT GIVEN IN HOSPITAL Cyanocobalamin (Vitamin B-12) 1,000 MCG TABLET 1 Tablet ORAL DAILY Comments: NOT GIVEN IN HOSPITAL Atorvastatin Calcium (Atorvastatin Calcium) 10 MG TABLET 1 Tablet ORAL Every night Qty = 90 Comments: Last Taken: 03/20/18 Time: 1715 Metoprolol Succinate (Metoprolol Succinate) 50 MG TAB.ER.24H 1 Tablet ORAL Every night Qty = 90 Comments: Last Taken:03/19/18 Time:2053 Terazosin HCl (Terazosin HCl) 5 MG CAPSULE 1 Capsule ORAL Every night Qty = 90 Comments: NOT GIVEN THIS ADMISSION Ferrous Sulfate (Ferrous Sulfate) 325 MG (65 MG IRON) TABLET 1 Tablet ORAL Every night Comments: NOT GIVEN IN HOSPITAL Fluticasone/Salmeterol (Advair 500-50 Diskus) 500 MCG-50 MCG/DOSE BLST.W.DEV 1 Puff Inhale through mouth TWICE DAILY Qty = 60 Comments: NOT GIVEN IN HOSPITAL GIVEN [facility] Umeclidinium Marcell (Incruse Ellipta) 62.5 MCG/ACTUATION BLST.W.DEV 1 Inhalation ORAL DAILY Qty = 30 Comments: NOT GIVEN THIS ADMISSION Albuterol Sulfate (Ventolin Hfa) 90 MCG HFA.AER.AD 2 Puff Inhale through mouth EVERY 4-6 HOURS NEEDED as needed for SHORTNESS OF BREATH Qty = 18 Comments: Last Taken: 03/20/18 Time: 0619 Start taking the following new medications: Aspirin (Ecotrin*) 81 MG TABLET.DR 1 Tablet ORAL DAILY Qty = 60 No Refills Comments: Last Taken: 03/21/18 Time: 0817
== END 2018-03-21 16:55 | DRG 350 ==
LOC: ERH 17:12 → 1NO 03-19 01:58 → CRI 03-19 01:58 → 1NO 03-20 22:15 → ENPENDDIS 03-21 12:06 → 1NO 03-21 16:55
PROVIDERS: Physician Assistant Medical; Physician Assistant Surgical; Surgery
PROC: 0YU60JZ Supplement Left Inguinal Region with Synthetic Substitute, Open Approach (ICD-10-PCS; principal; 2018-03-19)
DX: K40.41 Unilateral inguinal hernia, with gangrene, recurrent (principal); K55.039 Acute (reversible) ischemia of large intestine, extent unspecified; N17.9 Acute kidney failure, unspecified; I69.354 Hemiplegia and hemiparesis following cerebral infarction affecting left non-dominant side; I50.9 Heart failure, unspecified; I11.0 Hypertensive heart disease with heart failure; E86.0 Dehydration; Z79.51 Long term (current) use of inhaled steroids; E78.5 Hyperlipidemia, unspecified; Z85.51 Personal history of malignant neoplasm of bladder; D64.9 Anemia, unspecified; F17.200 Nicotine dependence, unspecified, uncomplicated; N32.9 Bladder disorder, unspecified
CPT/HCPCS: 1NP; CCU; 36415; 36592; 71045; 74021; 74177; 82436; 93005; 93010; 96374; 96376; 97110-GO; 97161-GP; 97530-GO; J0690; J1644; J3490; J7042